=== PATIENT | female | born 1930 | race Caucasian/White ===

== ENCOUNTER 2017-06-30 12:37 | Inpatient (IN) ==
[2017-06-30] MEDS ORDERED: ACETAMINOPHEN 325 MG TABLET PO ONE (13:11)
--- NOTE | 2017-06-30 13:11 | Emergency Department Report ---
Fever HPI - General Chief Complaint: Fever Stated Complaint: tremors Time Seen by Provider: 06/30/17 13:09 Source: patient Mode of arrival: ambulatory Limitations: no limitations - History of Present Illness HPI Narrative: 87-year-old female sent to ED from home due to shaking. Patient says she walked into the room to see her and she was shaking all over and called EMS. She admits to . of tremors. On arrival patient had 102.6 fever. Patient states she has not felt good for approximately a week. She was diagnosed with a UTI five days ago and started on Bactrim. Admits bilateral lower back pain. Admits urinary urgency and frequency. Patient denies SOB, CP, cough, nausea, vomiting, abdominal pain, dysuria. MD complaint: fever - Related Data Home Medications Medication Instructions Recorded Confirmed ALPRAZolam [Alprazolam] 2 mg PO BID PRN 06/30/17 06/30/17 Albuterol HFA Inhaler [Ventolin 2 puff INH BID 06/30/17 06/30/17 Hfa 90 mcg/actuation] Carisoprodol [Soma] 350 mg PO BID 06/30/17 06/30/17 Fluticasone Propionate 1 spray EA NOSTRIL DAILY 06/30/17 06/30/17 Furosemide [Lasix 40 mg Tab] 60 mg PO BID 06/30/17 06/30/17 Gabapentin [Neurontin] 100 mg PO TID 06/30/17 06/30/17 Levothyroxine Sodium 50 mcg PO ACB 06/30/17 06/30/17 Omeprazole [Prilosec] 20 mg PO DAILY 06/30/17 06/30/17 Potassium Chloride 40 meq PO DAILY 06/30/17 06/30/17 Potassium Chloride [K-DUR 20 mEq 1 tab PO HS 06/30/17 06/30/17 Tablet] Ranitidine [Zantac] 150 mg PO HS 06/30/17 06/30/17 Simvastatin 20 mg PO HS 06/30/17 06/30/17 Sotalol [Betapace] 80 mg PO BID 06/30/17 06/30/17 Venlafaxine HCl [Venlafaxine HCl 75 mg PO DAILY 06/30/17 06/30/17 ER] Warfarin Sodium 2.5 mg PO MOWEFR 06/30/17 06/30/17 Warfarin Sodium 5 mg PO SUTUTHSA 06/30/17 06/30/17 dilTIAZem HCl [Dilt-Xr] 120 mg PO HS 06/30/17 06/30/17 Previous Rx's Medication Instructions Recorded Amox/Clav [Augmentin 875/125] 875 mg PO BID #8 tab 07/05/17 Arformoterol Neb [Brovana Neb] 15 mcg AEROSOL RTBID vial 07/05/17 Budesonide Inhalation [Pulmicort 0.25 mg AEROSOL RTBID #60 vial 07/05/17 Inhalation] Allergies Allergy/AdvReac Type Severity Reaction Status Date / Time No Known Drug Allergies Allergy Unknown Verified 06/30/17 17:15 Review of Systems All systems: reviewed and negative except as stated Constitutional: Reports: as per HPI, fever Genitourinary: Reports: as per HPI, other (known UTI) Musculoskeletal: Reports: as per HPI, back pain [facility] Medical History (Last Reviewed 08/14/16 @ 13:06 by ALEYDA Rubin) Chronic back pain (Chronic Medical) Depression (Chronic Medical) Pulmonary hypertension (Chronic Medical) Thoracic back pain (Chronic Medical) Tricuspid insufficiency (Chronic Medical) Estrogen deficiency (Chronic Medical) Palpitations (Chronic Medical) PAF (paroxysmal atrial fibrillation) (Chronic Medical) GERD (gastroesophageal reflux disease) (Chronic Medical) Asthma (Chronic Medical) COPD (chronic obstructive pulmonary disease) (Chronic Medical) Hyperlipemia (Chronic Medical) Surgical History: Tonsillectomy 1939. FLAVIO/BSO with appendectomy 1973. Cataracts bilateral 2005. Lens implants bilateral 2007. Right total hip replacement 07/14/2010 Family History: Family History (Last Reviewed 08/14/16 @ 13:06 by ALEYDA Rubin) Father , Age 66 CAD Coronary artery disease Mother , Age 64 Cerebral hemorrhage Atrial fibrillation Cerebral hemorrhage Brother , Age 64 Cardiomyopathy, history of heart recipient Heart recipient Cardiomyopathy Sister , Age 74 Cirrhosis of liver Cirrhosis Sister , Age 85 Alzheimer's Alzheimer's dementia Sister Cancer of colon - Social History Smoking status: Former smoker Alcohol intake frequency: does not drink Household members: spouse Physical Exam - Limitations Limitations: no limitations - General General appearance: alert - Normal Exams: Head:: Normocephalic without trauma Eyes:: No scleral icterus, irritation ENMT:: No facial trauma, nasal exudates Chest/Respirations:: Clear all de dios, with good airflow, and symmetry bilaterally Cardiovascular:: Regular rate and rhythm Abdomen:: Bowel sounds positive, soft, non-tender, non-distended Musculoskeletal:: good range of motion, all extremities Neurological:: Patient is alert, and oriented, motor/sensory/cerebellar, exams w /o gross deficits, to observation Psychiatric:: Patient exhibits, appropriate attention, emotion and affect - Eye Eye exam: Present: EOMI - ENT ENT exam: Present: mucous membranes moist (back alcohol probably needs a linear 3 5) - Neck Neck exam: Present: full ROM, trachea midline. Absent: tenderness Course - Consultations Consultation #1: I discussed patient's HPI, PMH, labs, CXR, VS, exam findings and treatment in ER with Dr. Pablo. Dr. Pablo will admit OBS. Vital Signs Temperature 102.4 F H 06/30/17 12:46 Pulse Rate 69 06/30/17 12:46 Respiratory Rate 20 06/30/17 12:46 Blood Pressure 141/63 H 06/30/17 12:46 Pulse Oximetry 92 06/30/17 12:46 Temperature 102.4 F H 06/30/17 12:46 Pulse Rate 69 06/30/17 12:46 Respiratory Rate 20 06/30/17 12:46 Blood Pressure 141/63 H 06/30/17 12:46 Pulse Oximetry 92 06/30/17 12:46 Fever - MDM Narrative Medical decision making narrative: WBC 10.9 NA 147 Lactate 2.3 (patient given 1 gm of rocephin) INR 4.3 (anticoagulated due to atrial fibrillation) UA 3+ LE, 30-50 WBC, 3+ bacteria CXR show no acute findings Patient arrived with HR of 69 bpm, HR went up to low 100s how ever patient had converted to A-fib at that time I discussed conversation with patient I had with Dr. Pablo (failed outpatient treatment, elevated lactate), observation admission which patient verbalized understanding and was in agreement. - Differential Diagnosis Likely: community acquired pneumonia, pyelonephritis, viral infection, sepsis - Medical Records Attestation: I reviewed the patient's medical records. - Lab Data Attestation: I reviewed the patient's lab results. Result diagrams: 07/05/17 04:40 07/05/17 04:40 - Radiology Data Attestation: I reviewed the patient's radiology results. CXR: no acute cardiopulmonary findings Disposition Clinical Impression: UTI (urinary tract infection) Qualifiers: Urinary tract infection type: site unspecified Hematuria presence: with hematuria Qualified Code(s): N39.0 - Urinary tract infection, site not specified ; R31.9 - Hematuria, unspecified Disposition: 02 To OBS [facility] [place]: Stable - Seen By: midlevel
[2017-06-30] MEDS: SALINE FLUSH 10ml SYRINGE IVF PRN ×2 (13:50→14:47)
[2017-06-30] MEDS ORDERED: CEFTRIAXONE (ER USE ONLY) 1 GM in NS 100 ML IV ONE (14:43)
--- NOTE | 2017-06-30 16:34 | History & Physical Report ---
History of Present Illness Date: 06/30/17 Chief complaint: Fever, chills, UTI failed outpatinet tx, sepsis HPI: 87 yr old female who is brought to the room today for acute evaluation. Her inital complaint was shaking, However, upon arrival she was found to have a fever of 102.4. Patient was treated by her primary care provider on 06/25/17 at [facility]. At that time she was found to have a urinary tract infection and was placed on Bactrim. Since that time she has continued to get worse. She reports initially had some mild right flank pain, however, is now having bilateral flank pain. Given her worsening symptoms, she presented to the ER today for acute evaluation. She was found to have fever up to 103.2, count was normal at 10.4, however, she did have 79% neutrophils. Initial lactate was found to be elevated at 2.3. Chemistry panel did reveal elevation of sodium at 147. Urinalysis does reveal acute infection with positive LE, positive RBCs, positive WBCs. She was given 1 liter IV fluid bolus as well as 1 gram of IV Rocephin. Given the severity of her illness, accompanied by failed outpatient treatment. The hospitalist services were contacted and accepted patient for inpatient admission for further evaluation and treatment. Patient describes dysuria with increased urinary frequency and increased urinary incontinence for the past 5 days. She does report having bilateral flank pain. She complains of generalized fatigue and weakness. She is chronically anticoagulated on warfarin due to chronic atrial fibrillation. Her INR today is 4.3. She does report having 1 episode of blood in the toilet last week on 06/25 while at the clinic. Unsure if blood was due to urinary tract infection or in her stool. His other history of a bleeding. Reports ongoing "swelling" peripheral edema and abdominal distention that has been present for months. He does have a known history of congestive heart failure and is on Lasix 60 milligrams twice a day. We did discuss advance directives. She does wish to be do not resuscitate Review of Systems All systems PM: 10-point ROS was reviewed, no additional remarkable complaints except - Constitutional Constitutional: Present: chills, fatigue, fever(s), lethargy - Genitourinary Genitourinary: Present: dysuria, flank pain (bilaterally), urinary frequency, urinary incontinence Past Medical History Medical History: Medical History (Last Updated 06/30/17 @ 17:06 by Nicole Hidalgo APRN) CHF (congestive heart failure) (Acute) Chronic back pain (Chronic) Depression (Chronic) Pulmonary hypertension (Chronic) Thoracic back pain (Chronic) Tricuspid insufficiency (Chronic) Estrogen deficiency (Chronic) Palpitations (Chronic) PAF (paroxysmal atrial fibrillation) (Chronic) GERD (gastroesophageal reflux disease) (Chronic) Asthma (Chronic) COPD (chronic obstructive pulmonary disease) (Chronic) Hyperlipemia (Chronic) Surgical History: Tonsillectomy 1938. FLAVIO/BSO with appendectomy 1973. Cataracts bilateral 2005. Lens implants bilateral 2007. Right total hip replacement 07/14/2010. Pacemaker Family History: Father , Age 66 CAD Coronary artery disease Mother , Age 64 Cerebral hemorrhage Atrial fibrillation Cerebral hemorrhage Brother , Age 64 Cardiomyopathy, history of heart recipient Heart recipient Cardiomyopathy Sister , Age 74 Cirrhosis of liver Cirrhosis Sister , Age 85 Alzheimer's Alzheimer's dementia Sister Cancer of colon Family History: As Above - Social History Smoking status: Former smoker Substance use type: does not use Alcohol intake frequency: does not drink Housing: house Household members: spouse Current occupational status: retired Social history: Resides independently at home with . Patient is active Primary care provider, Manjula Mcdonald at [facility] [employer]-[facility]. [place] Medications Home Medications Medication Instructions Recorded Confirmed Type ALPRAZolam [Alprazolam] 2 mg PO BID PRN 06/30/17 06/30/17 History Albuterol HFA Inhaler [Ventolin 2 puff INH BID 06/30/17 06/30/17 History Hfa 90 mcg/actuation] Amiodarone [Pacerone] 100 mg PO HS 06/30/17 06/30/17 History Carisoprodol [Soma] 350 mg PO BID 06/30/17 06/30/17 History Fluticasone Propionate 1 spray EA NOSTRIL DAILY 06/30/17 06/30/17 History Furosemide [Lasix 40 mg Tab] 60 mg PO BID 06/30/17 06/30/17 History Gabapentin [Neurontin] 100 mg PO TID 06/30/17 06/30/17 History Levothyroxine Sodium 50 mcg PO ACB 06/30/17 06/30/17 History Omeprazole [Prilosec] 20 mg PO DAILY 06/30/17 06/30/17 History Potassium Chloride 40 meq PO DAILY 06/30/17 06/30/17 History Potassium Chloride [K-DUR 20 mEq 1 tab PO HS 06/30/17 06/30/17 History Tablet] Ranitidine [Zantac] 150 mg PO HS 06/30/17 06/30/17 History Simvastatin [Simvastatin] 20 mg PO HS 06/30/17 06/30/17 History Sotalol [Betapace] 80 mg PO BID 06/30/17 06/30/17 History Venlafaxine HCl [Venlafaxine HCl 75 mg PO DAILY 06/30/17 06/30/17 History ER] Warfarin Sodium [Warfarin Sodium] 2.5 mg PO MOWEFR 06/30/17 06/30/17 History Warfarin Sodium [Warfarin Sodium] 5 mg PO SUTUTHSA 06/30/17 06/30/17 History dilTIAZem HCl [Dilt-Xr] 120 mg PO HS 06/30/17 06/30/17 History Allergies Allergy/AdvReac Type Severity Reaction Status Date / Time No Known Drug Allergies Allergy Unknown Verified 06/30/17 17:15 Exam Vital Signs: Temperature 99.8 F 06/30/17 16:10 Pulse Rate 107 H 06/30/17 16:06 Respiratory Rate 19 06/30/17 16:06 Blood Pressure 98/51 06/30/17 16:06 Pulse Oximetry 92 06/30/17 12:46 Telemetry Rhythm: A-fib - Constitutional Present: mild distress, well nourished, well developed - Routine HEENT Exam Eye: Present: EOMI ENT: Present: mucous membranes moist, dentition normal - Routine Respiratory Exam Present: CTA bilaterally. Absent: wheezes - Routine Cardiovascular Exam Present: S1, S2, irregular rhythm. Absent: murmur - Routine Abdominal Exam Present: soft, non distended, distended (chronic), firm. Absent: normoactive bowel sounds (hypoactive), tenderness - Routine Extremities Exam Present: edema (L>R trace edema BLE), normal capillary refill - Routine Skin Exam Present: intact, dry, warm - Routine Neurological Exam Present: alert, oriented X3, CN II-XII intact - Routine Psychiatric Exam Present: normal affect, normal thought process, cooperative Results - Labs CBC & Chem 7: 06/30/17 12:51 06/30/17 13:49 Assessment and Plan (1) Severe sepsis Current visit: Yes Status: Acute Assessment and Plan: Impression Severe sepsis- Venous lactate greater than 2.1. Fever of 103.3, tachycardia-107 Urinary tract infection Flank pain and bilateral Failed outpatient treatment Hypernatremia -present on admission elevated INR- 4.3 on admission Chronic Atrial fibrillation Hyperlipidemia Congestive heart failure- Right sided Asthma/COPD GERD Depression Chronic back pain Plan Admit patient as inpatient status -she does meet criteria, given severe sepsis with failed outpatient treatment. She was started on IV Rocephin while in the emergency room. Blood cultures and urine culture are pending. Initial lactate is elevated at 2.3. We will repeat this as per sepsis protocol. qSOFA score- time of admission score is 1 out of 3 revealing low risk of sepsis mortality. Need to monitor carefully Continue with IV Rocephin 1 gram daily as this is accepted monotherapy. Obtain Ct renal to for pyelonephritis versus renal calculi Patient did receive 1 liter of normal saline while in the emergency room. We will continue saline at 100 mL per hour. Suspect the patient is intravascularly dehydrated. However, extra vascularly edematous state, i.e., lower extremity edema She does routinely take Lasix 60 mg twice a day. Will initially place this on hold. However, will have to monitor patient carefully for fluid overload, pulmonary edema, etc. Kailash Hose to bilateral lower extremities to help with peripheral edema Will resume all other home mediations other that lasix and potassium Consult pharmacy for Coumadin dosing- INR today is 4.3 Does wish to be a do not resuscitate and this order is written Will discuss further orders and plan of care with attending, Dr. Pablo At time of discharge medical care will return to primary care provider, Stella Schwab- FANNY at [facility] DVT Prophylaxis: Coumadin Resuscitation Status: Do Not Resuscitate - Time spent with patient Time with patient PN: 50 minutes - Physician Narrative Physician: Angie Pablo MD Narrative: Date: 06/30/17 Time: 1734 I have independently evaluated and examined this patient. I reviewed the chart, the patient's history, and the M[employer] OPERATOR/PA's documented findings as above. We discussed and formulated the assessment and plan as above with additions as below: Mrs. Ludwig was seen with her daughter at bedside. The patient reports recent dysuria/hematuria in conjunction with right-sided back pain. Urinary symptoms have improved but back pain has increased and is now bilateral. Today she developed shaking which was worse than she is had "ever experienced in her life " prompting evaluation in the emergency room. Daughter reports that the patient' s son described patient talking gibberish earlier today which the patient attributes to her shaking so badly. There she was found to be febrile with an initial temperature of 102.4 increasing to 103.2 with persistent pyuria. Examination notable for patient alert and asking appropriate questions, NAD at present Respirations nonlabored, good airflow, breath sounds clear-inspiration triggers cough Abdomen benign, no suprapubic tenderness on examination Right costovertebral angle tenderness present Initial lactic acid 2.3 dropping to 1.1 following fluids in the ER; hemodynamically stable although mild residual tachycardia with heart rates 96- 102 persist Chest x-ray unremarkable by my review; renal CT also reviewed by myself demonstrating reticulosis without diverticulitis, large cyst in the left lobe of the liver, perinephric stranding primarily around the right kidney, questionable right hydronephrosis-minor. UTI/right pyelonephritis/severe sepsis-admit as inpatient, ceftriaxone daily pending results of blood cultures/urine cultures. Warfarin on hold pending stabilization of INR. Continue alprazolam at home dose to avoid withdrawal. Discussed with the ED provider, outpatient records reviewed. Sepsis Assessment - Evaluation SIRS Criteria: temperature > 100.9, pulse > 90 beats/minute, RR > 20 Severe Sepsis: lactate > 2.0 mg/dL Hospital Course Summary Disclaimer: The visit summary below is not to be considered part of the above Progress Note. Hospital Course: Impression Severe sepsis- Venous lactate greater than 2.1. Fever of 103.3, tachycardia-107 Urinary tract infection Flank pain and bilateral Failed outpatient treatment Hypernatremia -present on admission elevated INR- 4.3 on admission Chronic Atrial fibrillation Hyperlipidemia Congestive heart failure- Right sided Asthma/COPD GERD Depression Chronic back pain Plan Admit patient as inpatient status -she does meet criteria, given severe sepsis with failed outpatient treatment. She was started on IV Rocephin while in the emergency room. Blood cultures and urine culture are pending. Initial lactate is elevated at 2.3. We will repeat this as per sepsis protocol. qSOFA score- time of admission score is 1 out of 3 revealing low risk of sepsis mortality. Need to monitor carefully Continue with IV Rocephin 1 gram daily as this is excepted monotherapy. Obtain Ct renal to for pyelonephritis versus renal calculi Patient did receive 1 liter of normal saline while in the emergency room. We will continue saline at 100 mL per hour. Suspect the patient is intravascularly dehydrated. However, extra vascularly edematous state, i.e., lower extremity edema She does routinely take Lasix 60 mg twice a day. Will initially place this on hold. However, will have to monitor patient carefully for fluid overload, pulmonary edema, etc. Kailash Hose to bilateral lower extremities to help with peripheral edema Will resume all other home mediations other that lasix and potassium Consult pharmacy for Coumadin dosing- INR today is 4.3 Does wish to be a do not resuscitate and this order is written Will discuss further orders and plan of care with attending, Dr. Pablo At time of discharge medical care will return to primary care provider, Stella Naranjo APRN at [facility]
[2017-06-30] MEDS ORDERED: WARFARIN - PHARMACY CONSULT MC ONE (16:56)
[2017-06-30] MEDS: NS 1,000 ML IV SCH (18:40)
[2017-06-30] MEDS ORDERED: METOCLOPRAMIDE 10mg/2ml INJECTION IVP PRN (19:33)
[2017-06-30] MEDS: AMIODARONE 200 MG TABLET PO SCH (21:32)
[2017-06-30] MEDS: GABAPENTIN 100 MG CAPSULE PO SCH (21:33)
[2017-06-30] MEDS: SIMVASTATIN 20 MG TABLET PO SCH (21:33)
[2017-06-30] MEDS: RANITIDINE 150 MG TABLET PO SCH (21:33)
[2017-06-30] MEDS: SOTALOL 80 MG TABLET PO SCH ×2 (21:33→22:17)
[2017-06-30] MEDS ORDERED: ALPRAZolam 0.5 MG TABLET PO PRN (22:19)
[2017-07-01] MEDS: LEVOTHYROXINE 50 MCG TABLET PO SCH (06:19)
[2017-07-01] MEDS: NS 1,000 ML IV SCH ×3 (06:31→19:14)
[2017-07-01] MEDS ORDERED: CEFTRIAXONE 1,000 MG in D5W 25 ML IV SCH (09:00)
--- NOTE | 2017-07-01 09:12 | Pharmacy Consult ---
Pharmacy Consult-Warfarin - Laboratory Information 07/01/17 07/01/17 04:01 04:01 Hgb 13.6 Hct 42.6 INR 4.14 H - Consult Information 87 y.o. Female with history of a. fib and chronic anticoagulation with Warfarin. Home dose of warfarin: 2.5 mg po - and 5 mg po -. goal INR range= 2.0 to 3.0 date INR dose 07/01 4.14 plan: no warfarin dose INR is supra-therapeutic today. Nursing reports no signs of active bleeding. Will give no Warfarin dose today. Potential drug-drug interaction exists between Ceftriaxone and Warfarin also Amiodarone and Warfarin. Both interactions have the potential to increase INR and risk of bleeding. Pharmacy will monitor and dose. Thank you, Lauren Thornton [facility]
[2017-07-01] MEDS: SOTALOL 80 MG TABLET PO SCH ×2 (09:21→21:21)
[2017-07-01] MEDS: GABAPENTIN 100 MG CAPSULE PO SCH ×3 (09:21→21:21)
[2017-07-01] MEDS: Venlaflaxine XR 75 MG CAPSULE (24hr) PO SCH (09:21)
[2017-07-01] MEDS: FLUTICASONE NASAL SPRAY 50mcg EA NOSTRIL SCH (09:22)
[2017-07-01] MEDS: OMEPRAZOLE 20 MG CAPSULE PO SCH (09:29)
--- NOTE | 2017-07-01 09:41 | CT Scan Report ---
Indication: Bilateral flank pain with UTI, sepsis PROCEDURE: CT renal wo con (stone magaly): Encounter: Initial Comparison: None Technique: Axial CT images were performed through the abdomen and pelvis without intravenous contrast. Coronal and sagittal two-dimensional reformats. Automated Exposure Control and Iterative Reconstruction dose reducing techniques were utilized. Findings: Fibrosis and scarring in the lower lobes with a right lower lobe calcified granuloma. Multiple liver cysts. The gallbladder is unremarkable. Granulomas in the spleen. The pancreas and adrenal glands are normal. Left kidney is normal. Right kidney shows mild hydronephrosis and hydroureter due to a possible distal ureteral stone which may be obscured by the metallic artifact from the right hip prosthesis. Sigmoid diverticulosis without evidence of acute diverticulitis. Bone windows are unremarkable. Impression: Right hydronephrosis and hydroureter with inflammation could be due to a right distal ureteral stone that is obscured by metallic artifact from the hip replacement, a recently passed stone or potentially pyelonephritis. Urologic evaluation may be helpful. There is a preliminary report by [facility]. .
[2017-07-01] MEDS: ALBUTEROL 2.5mg/3ml (0.083%) NEB AEROSOL SCH ×2 (09:50→19:48)
--- NOTE | 2017-07-01 09:51 | XRay Report ---
INDICATION: fever PROCEDURE: CHEST 2-VIEWS UPRIGHT (PA & LAT) Encounter: Initial COMPARISON: April 12, 2017 FINDINGS: No focal pneumonia, pleural effusion or pneumothorax. Mild fibrotic changes and senescent change. Heart size and mediastinal contours are stable. Left pacemaker. Impression: No acute cardiopulmonary disease. .
--- NOTE | 2017-07-01 10:27 | Progress Note ---
- Date 07/01/17 Subjective: F/U: severe, sepsis, UTI, failed outpatient therapy. Fatou is seen this morning while resting in bed. She reports that she is feeling a little better. She denies any fevers, chills, chest pain, shortness of breath , abdominal pain, nausea, vomiting or dysuria. Her appetite is fair and urinary output is stable. Urine culture revealed E. coli with sensitives pending. Lactate trending down (initial 2.3, decreased to 1.1). CT revealed right hydronephrosis and hydroureter with inflammation which could be due to a right distal ureteral stone that is obscured by metallic artifact from right hip , a recently passed stone or potentially pyelonephritis. Labs revealed new leukocytosis (WBC 12.1) and INR remains elevated at 4.14 without signs of bleeding. Hypernatremia resolved and new hyperglycemia (Glu 121). Objective Vital signs: Temperature 96.4 F L 07/01/17 07:00 Pulse Rate 109 H 07/01/17 09:21 Respiratory Rate 16 07/01/17 09:50 Blood Pressure 124/57 07/01/17 07:00 Pulse Oximetry 93 07/01/17 09:50 Rhythm: Sinus Tachycardia Height/Weight/BMI: Height 5 ft 1 in Weight 178 lb 9.191 oz Body Mass Index 32.7 Comments: Resting in bed, eating breakfast - Constitutional Present: no acute distress, well nourished, well developed, cooperative - Routine HEENT Exam Head: Present: normocephalic, atraumatic Eye: Present: PERRL. Absent: conjunctival icterus ENT: Present: mucous membranes moist, oropharynx clear - Routine Respiratory Exam Present: decreased breath sounds, crackles. Absent: respiratory distress, wheezes Comments: Patient on 1L at time of exam. Denies use of home oxygen. No cough or conversational dyspnea. - Routine Cardiovascular Exam Present: tachycardia - Routine Abdominal Exam Present: soft, normoactive bowel sounds, non distended - Routine Extremities Exam Present: edema (trace), full ROM, pulses intact - Routine Back/Spine/Pelvis Exam Back/Spine: Present: full ROM. Absent: vertebral tenderness - Routine Musculoskeletal Exam Musculoskeletal: Present: no clubbing or cyanosis, moving extremities well - Routine Skin Exam Present: intact, dry, warm Comments: Afebrile. - Routine Neurological Exam Present: alert, moving all extremities, hearing grossly intact, normal speech - Routine Lymphatic Exam Lymphatic: Absent: lymphedema - Routine Psychiatric Exam Present: cooperative Results - Labs CBC & Chem 7: 07/01/17 04:01 07/01/17 04:01 Assessment and Plan (1) Severe sepsis Current visit: Yes Status: Acute Assessment and Plan: Impression Severe sepsis- Venous lactate greater than 2.1. Fever of 103.3, tachycardia-107 Urinary tract infection Flank pain, bilateral Failed outpatient treatment Hypernatremia -present on admission elevated INR- 4.3 on admission Paroxysmal Atrial fibrillation Hyperlipidemia Congestive heart failure- Right sided Asthma/COPD GERD Depression Chronic back pain Leukocytosis - NEW DIAGNOSIS. 07/01 Patient reports she is feeling better. New leukocytosis today (WBC 12.1) as well as new hyperglycemia (Glu 121). Lactate trending down (2.3-->1.1). qSOFA score- time of admission score is 1 out of 3 revealing low risk of sepsis mortality. Need to monitor carefully Continue Rocephin for UTI. UA culture revealed E. Coli with sensitivities pending. Blood cultures pending. INR remains elevated (4.14). Pharmacy monitoring. CT revealed right hydronephrosis and hydroureter with inflammation which could be due to a right distal ureteral stone that is obscured by metallic artifact from right hip, a recently passed stone or potentially pyelonephritis. Will strain urine and monitor urinary output closely. History of a-fib. Continue to monitor closely on telemetry. HR variable (60's then tachycardiac ~110). Weight trending up. She does routinely take Lasix 60 mg twice a day. Will initially place this on hold. However, will have to monitor patient carefully for fluid overload, pulmonary edema, etc. Patient continues to require supplemental oxygen. Crackles bibasilar. Denies home oxygen use. Encourage incentive spirometry. Monitor for signs of fluid overload. Will decrease IV fluids to 75cc/hr and encourage oral intake. Philip Hose to bilateral lower extremities to help with peripheral edema Recheck labs in AM to monitor blood counts, electrolytes and renal function. DVT Prophylaxis: SCD's, PHILIP Hose GI Prophylaxis: Omeprazole, Rantidine Resuscitation Status: Do Not Resuscitate - Time spent with patient Time with patient PN: 30 minutes - Physician Narrative Physician: Angie Pablo MD Narrative: Date: 07/01/17 Time: 1430 I have independently evaluated and examined this patient. I reviewed the chart, the patient's history, and the STORE SPECIALIST/PA's documented findings as above. We discussed and formulated the assessment and plan as above with additions as below: Mrs. Ludwig reports her back pain is better and comparable to what she considers her usual chronic back pain. She's had no recurrent chilling and denies lightheadedness, dysuria, or nausea. The patient is alert and cooperative; there is persistent right costovertebral angle tenderness on exam. Afebrile today. Respirations nonlabored, irregular cardiac rhythm, abdomen benign Final CT report reviewed-question of nephrolithiasis noted and reviewed with patient who denies any history of nephrolithiasis or abrupt onset right sided pain. Telemetry reviewed-patient has been in and out of atrial fibrillation with low- grade tachycardia with intermittent sinus rhythm with normal rate. Daughter reports she believes this is common as she has noted patient in atrial fibrillation in the past despite current medications. Check KUB for calcification suspicious for distal ureteral stone; history not suggestive of nephrolithiasis but if partially obstructed with infection will require urology assessment in near future. Clinically significantly improved with antibiotics. Repeat UA in a.m. Paroxysmal atrial fibrillation persists on low-dose amiodarone and sotalol- regimen and rhythm discussed with Lucero POPE for Dr. Ford--she recommended pacemaker interrogation and assessment of QTC. Readdress medications after we have better idea if this is isolated breakthrough with infection or chronic. Hospital Course Summary Disclaimer: The visit summary below is not to be considered part of the above Progress Note. Hospital Course: Impression Severe sepsis- Venous lactate greater than 2.1. Fever of 103.3, tachycardia-107 Urinary tract infection Flank pain and bilateral Failed outpatient treatment Hypernatremia -present on admission elevated INR- 4.3 on admission Chronic Atrial fibrillation Hyperlipidemia Congestive heart failure- Right sided Asthma/COPD GERD Depression Chronic back pain Plan Admit patient as inpatient status -she does meet criteria, given severe sepsis with failed outpatient treatment. She was started on IV Rocephin while in the emergency room. Blood cultures and urine culture are pending. Initial lactate is elevated at 2.3. We will repeat this as per sepsis protocol. qSOFA score- time of admission score is 1 out of 3 revealing low risk of sepsis mortality. Need to monitor carefully Continue with IV Rocephin 1 gram daily as this is excepted monotherapy. Obtain Ct renal to for pyelonephritis versus renal calculi Patient did receive 1 liter of normal saline while in the emergency room. We will continue saline at 100 mL per hour. Suspect the patient is intravascularly dehydrated. However, extra vascularly edematous state, i.e., lower extremity edema She does routinely take Lasix 60 mg twice a day. Will initially place this on hold. However, will have to monitor patient carefully for fluid overload, pulmonary edema, etc. Philip Hose to bilateral lower extremities to help with peripheral edema Will resume all other home mediations other that lasix and potassium Consult pharmacy for Coumadin dosing- INR today is 4.3 Does wish to be a do not resuscitate and this order is written Will discuss further orders and plan of care with attending, Dr. Pablo At time of discharge medical care will return to primary care provider, Stella Naranjo APRN at [facility] 07/01 Patient reports she is feeling better. New leukocytosis today (WBC 12.1) as well as new hyperglycemia (Glu 121). Lactate trending down (2.3-->1.1). Continue Rocephin for UTI. UA culture revealed E. Coli with sensitivities pending. Blood cultures pending. INR remains elevated (4.14). Pharmacy monitoring. CT revealed right hydronephrosis and hydroureter with inflammation which could be due to a right distal ureteral stone that is obscured by metallic artifact from right hip, a recently passed stone or potentially pyelonephritis. Check KUB today. Will strain urine and monitor urinary output closely. History of a-fib. Continue to monitor closely on telemetry. HR variable (60's then tachycardiac ~110). Pacemaker to be interrogated to determine chronicity of paroxysmal atrial fibrillation. Check QTC on sotalol. Weight trending up. She does routinely take Lasix 60 mg twice a day. Will initially place this on hold. However, will have to monitor patient carefully for fluid overload, pulmonary edema, etc. Patient continues to require supplemental oxygen. Crackles bibasilar. Denies home oxygen use. Encourage incentive spirometry. Monitor for signs of fluid overload. Will decrease IV fluids to 75cc/hr and encourage oral intake.
[2017-07-01] MEDS: CEFTRIAXONE 1 G in NS 100 ML IV SCH (13:38)
[2017-07-01] MEDS: AMIODARONE 200 MG TABLET PO SCH (21:19)
[2017-07-01] MEDS: ALPRAZolam 1 MG TABLET PO PRN (21:20)
[2017-07-01] MEDS: RANITIDINE 150 MG TABLET PO SCH (21:20)
[2017-07-01] MEDS: SIMVASTATIN 20 MG TABLET PO SCH (21:21)
[2017-07-02] MEDS: LEVOTHYROXINE 50 MCG TABLET PO SCH (06:05)
[2017-07-02] MEDS: FLUTICASONE NASAL SPRAY 50mcg EA NOSTRIL SCH (08:53)
[2017-07-02] MEDS: GABAPENTIN 100 MG CAPSULE PO SCH ×3 (08:53→21:39)
[2017-07-02] MEDS: Venlaflaxine XR 75 MG CAPSULE (24hr) PO SCH (08:54)
[2017-07-02] MEDS: OMEPRAZOLE 20 MG CAPSULE PO SCH (08:54)
[2017-07-02] MEDS: NS 1,000 ML IV SCH (08:54)
[2017-07-02] MEDS: SOTALOL 80 MG TABLET PO SCH ×2 (08:54→21:40)
--- NOTE | 2017-07-02 09:44 | Progress Note ---
- Date 07/02/17 Subjective: Fatou is having R CVA pain that wraps around her side into her RUQ. She states that her pain is exacerbated by her cough, which is nonproductive and has been present for months. Movement doesn't intensify the pain. She also notes increased bloating today without nausea/vomiting. She had bowel movements for the last 2 days but not yet today. She has been eating/drinking well. She reports that she has chronic swelling in her legs, especially her left. No chest pain or SOA - but added that she sometimes gets SOA at home. She feels rested this am. She denies weakness or dizziness with ambulation. Objective Vital signs: Temperature 96.8 F 07/02/17 07:51 Pulse Rate 99 07/02/17 08:54 Respiratory Rate 16 07/02/17 07:51 Blood Pressure 116/73 07/02/17 07:51 Pulse Oximetry 91 07/02/17 07:51 Height/Weight/BMI: Height 1.55 m Weight 81 kg Body Mass Index 32.7 - Constitutional Present: no acute distress, well nourished, well developed - Routine HEENT Exam Head: Present: normocephalic Eye: Present: PERRL. Absent: conjunctival icterus, scleral injection ENT: Present: mucous membranes moist, oropharynx clear - Routine Respiratory Exam Present: CTA bilaterally - Routine Cardiovascular Exam Present: S1, S2, irregular rhythm - Routine Abdominal Exam Present: soft, normoactive bowel sounds, non tender, distended - Routine Extremities Exam Present: edema (1+, L>R), pulses intact, normal capillary refill - Routine Back/Spine/Pelvis Exam Back/Spine: Present: CVA tenderness (Right CVA tenderness) - Routine Musculoskeletal Exam Musculoskeletal: Present: moving extremities well - Routine Skin Exam Present: intact, dry, warm - Routine Neurological Exam Present: alert, oriented X3, CN II-XII intact, moving all extremities, vision grossly intact, hearing grossly intact, normal speech. Absent: sensory deficit , motor deficit, altered mental status, facial asymmetry - Routine Psychiatric Exam Present: normal affect, normal thought process, cooperative Results - Labs CBC & Chem 7: 07/02/17 04:06 07/02/17 04:06 Assessment and Plan (1) Severe sepsis Current visit: Yes Status: Acute Assessment and Plan: Impression Severe sepsis- Venous lactate greater than 2.1. Fever of 103.3, tachycardia-107 Urinary tract infection - E. coli Hypokalemia, not POA Flank pain, bilateral Failed outpatient treatment Hypernatremia - present on admission - resolved elevated INR - 4.3 on admission Paroxysmal Atrial fibrillation Hyperlipidemia Congestive heart failure- Right sided Asthma/COPD GERD Depression Chronic back pain Leukocytosis 07/02 WBC improved to 10.8, afebrile. UC pos for E. coli sensitive to Rocephin (today is Day #3) K decreased to 3.3 - orally replaced. DC IVF - adequate PO intake. Na 144. INR 3.28 - Coumadin per pharmacy. High risk d/t persistently supratherapeutic inr. Tele reviewed - she was in a-fib on first glance and when I later reviewed there were p-waves. Hx PAF - pacemaker interrogation ordered yesterday. Maintaining sats on room air today. D/W Dr. Pablo - considering repeat CT vs. urologic consult. DVT Prophylaxis: Coumadin GI Prophylaxis: Omeprazole Resuscitation Status: Do Not Resuscitate - Physician Narrative Physician: Angie Pablo MD Narrative: Date: 07/02/17 Time: 1410 I have independently evaluated and examined this patient. I reviewed the chart, the patient's history, and the NUCLEAR WASTE MANAGEMENT ENGINEER/PA's documented findings as above. We discussed and formulated the assessment and plan as above with additions as below: Mrs. Ludwig was seen earlier this afternoon reporting that back pain is better than when she came in and basically at baseline. She has occasional cough but denies any ongoing urinary symptoms. Patient is in no acute distress, abdomen is soft and nontender but there is persistent right costovertebral angle tenderness. Urine culture +Escherichia coli resistant to Bactrim and ampicillin Blood cultures negative after 2 days Leukocytosis resolving Repeat renal CT today with and without contrast to better define ureter and lower pole of the right kidney which looked slightly irregular on noncontrast study. Potassium replaced earlier. Pacemaker interrogation reviewed with the patient and her -patient is in and out of atrial fibrillation routinely with over 8000 episodes of atrial fibrillation/atrial tachycardia reported since last interrogation. Will discuss further with cardiology. QTc interval 430 ms on EKG. Telemetry here continues to reveal alternating atrial fibrillation with rates generally controlled or minimally elevated, paced rhythm, and occasionally sinus rhythm. INR improving-warfarin resumed at 2 mg today. Hospital Course Summary Disclaimer: The visit summary below is not to be considered part of the above Progress Note. Hospital Course: Impression Severe sepsis- Venous lactate greater than 2.1. Fever of 103.3, tachycardia-107 Urinary tract infection Flank pain and bilateral Failed outpatient treatment Hypernatremia -present on admission elevated INR- 4.3 on admission Chronic Atrial fibrillation Hyperlipidemia Congestive heart failure- Right sided Asthma/COPD GERD Depression Chronic back pain Plan Admit patient as inpatient status -she does meet criteria, given severe sepsis with failed outpatient treatment. She was started on IV Rocephin while in the emergency room. Blood cultures and urine culture are pending. Initial lactate is elevated at 2.3. We will repeat this as per sepsis protocol. qSOFA score- time of admission score is 1 out of 3 revealing low risk of sepsis mortality. Need to monitor carefully Continue with IV Rocephin 1 gram daily as this is excepted monotherapy. Obtain Ct renal to for pyelonephritis versus renal calculi Patient did receive 1 liter of normal saline while in the emergency room. We will continue saline at 100 mL per hour. Suspect the patient is intravascularly dehydrated. However, extra vascularly edematous state, i.e., lower extremity edema She does routinely take Lasix 60 mg twice a day. Will initially place this on hold. However, will have to monitor patient carefully for fluid overload, pulmonary edema, etc. Kailash Hose to bilateral lower extremities to help with peripheral edema Will resume all other home mediations other that lasix and potassium Consult pharmacy for Coumadin dosing- INR today is 4.3 Does wish to be a do not resuscitate and this order is written Will discuss further orders and plan of care with attending, Dr. Pablo At time of discharge medical care will return to primary care provider, Stella Naranjo APRN at [facility] 07/01 Patient reports she is feeling better. New leukocytosis today (WBC 12.1) as well as new hyperglycemia (Glu 121). Lactate trending down (2.3-->1.1). Continue Rocephin for UTI. UA culture revealed E. Coli with sensitivities pending. Blood cultures pending. INR remains elevated (4.14). Pharmacy monitoring. CT revealed right hydronephrosis and hydroureter with inflammation which could be due to a right distal ureteral stone that is obscured by metallic artifact from right hip, a recently passed stone or potentially pyelonephritis. Check KUB today. Will strain urine and monitor urinary output closely. History of a-fib. Continue to monitor closely on telemetry. HR variable (60's then tachycardiac ~110). Pacemaker to be interrogated to determine chronicity of paroxysmal atrial fibrillation. Check QTC on sotalol. Weight trending up. She does routinely take Lasix 60 mg twice a day. Will initially place this on hold. However, will have to monitor patient carefully for fluid overload, pulmonary edema, etc. Patient continues to require supplemental oxygen. Crackles bibasilar. Denies home oxygen use. Encourage incentive spirometry. Monitor for signs of fluid overload. Will decrease IV fluids to 75cc/hr and encourage oral intake. 07/02 WBC improved to 10.8, afebrile. UC pos for E. coli sensitive to Rocephin (today is Day #3) K decreased to 3.3 - orally replaced. DC IVF - adequate PO intake. Na 144. INR 3.28 - Coumadin per pharmacy. Tele reviewed - she was in a-fib on first glance and when I later reviewed there were p-waves. Hx PAF - pacemaker interrogation ordered yesterday. Maintaining sats on room air today. D/W Dr. Pablo - considering repeat CT vs. urologic consult.
--- NOTE | 2017-07-02 09:47 | Pharmacy Consult ---
Pharmacy Consult-Warfarin - Laboratory Information 07/01/17 07/01/17 07/02/17 04:01 04:01 04:06 Hgb 13.6 Hct 42.6 INR 4.14 H 3.28 H 07/02/17 04:06 Hgb 11.8 L D Hct 36.8 D INR - Consult Information 87 y.o. Female with history of a. fib and chronic anticoagulation with Warfarin. Home dose of warfarin: 2.5 mg po and 5 mg po . goal INR range= 2.0 to 3.0 date INR dose 07/01 4.14 no warfarin given 07/02 3.28 plan: 2 mg INR is supra-therapeutic today, but dropped considerably. Will give a Warfarin 2 mg dose po today. Potential drug-drug interaction exists between Ceftriaxone and Warfarin also Amiodarone and Warfarin. Both interactions have the potential to increase INR and risk of bleeding. Pharmacy will monitor and dose. Thank you, Lauren Thornton [facility]
--- NOTE | 2017-07-02 10:07 | XRay Report ---
Indication: possible right distal kidney stone-poorly defined on CT PROCEDURE: XR KUB: Encounter: Initial Comparison: Renal CT dated June 30, 2017 Findings: Basilar fibrosis and scarring. Bowel gas pattern is nonobstructive and nonspecific. No radiographically visible stones projecting over the kidneys or expected course of the ureters. Right hip replacement. Bony structures are unremarkable. Impression: No radiographically apparent urolithiasis. .
[2017-07-02] MEDS: ALBUTEROL 2.5mg/3ml (0.083%) NEB AEROSOL SCH ×2 (11:05→20:35)
[2017-07-02] MEDS ORDERED: WARFARIN 2 MG TABLET PO SCH (12:00)
[2017-07-02] MEDS: CEFTRIAXONE 1 G in NS 100 ML IV SCH (14:19)
[2017-07-02] MEDS ORDERED: NS with KCL 20 mEq 1,000 ML IV SCH (14:30)
[2017-07-02] MEDS ORDERED: IOHEXOL 300mg/ml 100ml INJECTION ONE (15:37)
[2017-07-02] MEDS: SALINE FLUSH 10ml SYRINGE IVF PRN (18:22)
[2017-07-02] MEDS ORDERED: FUROSEMIDE 40 MG/4 ML INJECTION IVP ONE (18:30)
[2017-07-02] MEDS ORDERED: BUDESONIDE/FORMOTEROL 80/4.5mcg INHALER ORAL INH SCH (21:04)
[2017-07-02] MEDS: RANITIDINE 150 MG TABLET PO SCH (21:39)
[2017-07-02] MEDS: SIMVASTATIN 20 MG TABLET PO SCH (21:40)
[2017-07-02] MEDS: AMIODARONE 200 MG TABLET PO SCH (21:40)
[2017-07-02] MEDS: ALPRAZolam 1 MG TABLET PO PRN (21:45)
[2017-07-02] MEDS: BUDESONIDE INH.SOLN 0.25mg/2ml NEB AEROSOL SCH (21:53)
[2017-07-02] MEDS: ARFORMOTEROL NEB 15mcg/2ml AEROSOL SCH (21:54)
[2017-07-03] MEDS: ACETAMINOPHEN 325 MG TABLET PO PRN (02:26)
[2017-07-03] MEDS: LEVOTHYROXINE 50 MCG TABLET PO SCH (06:06)
[2017-07-03] MEDS: ARFORMOTEROL NEB 15mcg/2ml AEROSOL SCH ×2 (08:15→20:08)
[2017-07-03] MEDS: BUDESONIDE INH.SOLN 0.25mg/2ml NEB AEROSOL SCH ×2 (08:15→20:08)
[2017-07-03 08:20] VITALS: BMI 34.2
--- NOTE | 2017-07-03 08:25 | CT Scan Report ---
Indication: flank pain-right, probable pyelo PROCEDURE: CT renal wo/w con: Encounter: Initial Comparison: June 30, 2017 Technique: Axial CT images were performed through the abdomen and pelvis before and after the administration of intravenous contrast. Delayed postcontrast images were also performed. Coronal and sagittal 2-dimensional reformats. Automated Exposure Control and Iterative Reconstruction dose reducing techniques were utilized. Contrast: Omnipaque 300 100 mL Findings: Atelectasis and scarring in the lung bases with calcified granulomas. Noncontrast images again show multiple hepatic cysts and splenic granulomas. No renal stones identified. Right hydronephrosis has improved with mild right hydroureter remaining. Postcontrast images show no enhancing liver masses or bile duct dilatation. The spleen enhances normally. Pancreas and adrenal glands are normal. The kidneys enhance normally. No bowel obstruction. Delayed postcontrast images show symmetric excretion of contrast from both renal collecting systems. No filling defects identified. No obvious ureteral stones. Mild bladder thickening. Impression: Inflammatory change surrounding the right kidney without evidence of focal pyelonephritis or renal abscess. Bladder inflammation suggesting cystitis. No definite obstructing stone or mass. There is a preliminary report by [employer]. .
[2017-07-03] MEDS: FLUTICASONE NASAL SPRAY 50mcg EA NOSTRIL SCH (08:37)
[2017-07-03] MEDS: SOTALOL 80 MG TABLET PO SCH ×2 (08:38→20:25)
--- NOTE | 2017-07-03 08:38 | Pharmacy Consult ---
Pharmacy Consult-Warfarin - Laboratory Information 07/01/17 07/01/17 07/02/17 04:01 04:01 04:06 Hgb 13.6 Hct 42.6 INR 4.14 H 3.28 H 07/02/17 07/03/17 07/03/17 04:06 04:27 04:27 Hgb 11.8 L D 11.9 L Hct 36.8 D 36.4 INR 2.35 H - Consult Information COUMADIN CONSULT (Recurring): 87 yr old female patient 5'1" 82 kg admitted for UTI sepsis Patient is on warfarin for chronic A Fib DATE INR DOSE 07/01/17 4.14 No Dose given 07/02/17 3.28 2 mg 07/03/17 2.35 Will give 4 mg today Patient's home dose is 2.5 mg on MoWeFr and 5 mg on SuTuThSa Patient is currently on Ceftriaxone which can increase the INR. Thank you. Ladi Holloway, PharmD
[2017-07-03] MEDS: Venlaflaxine XR 75 MG CAPSULE (24hr) PO SCH (08:39)
[2017-07-03] MEDS: OMEPRAZOLE 20 MG CAPSULE PO SCH (08:39)
[2017-07-03] MEDS: GABAPENTIN 100 MG CAPSULE PO SCH ×3 (08:39→20:25)
[2017-07-03] MEDS: ALBUTEROL 2.5mg/3ml (0.083%) NEB AEROSOL SCH (09:32)
[2017-07-03] MEDS ORDERED: WARFARIN 4 MG TABLET PO SCH (12:00)
--- NOTE | 2017-07-03 12:31 | Progress Note ---
- Date 07/03/17 Subjective: Fatou was joined by her . She is feeling better today. Her pain to her right flank isn't nearly as severe and the pain that wrapped around to her abdomen has nearly resolved. She still feels weak and fatigues easily, and feels just like resting all day. She doesn't have much energy. She continues with her chronic cough. She denies SOA or dizziness. She denies nausea/ vomiting. We reviewed CT findings. We also discussed the pacemaker interrogation report (and they were both surprised to hear that she still has a- fib). Objective Vital signs: Temperature 95.7 F L 07/03/17 11:00 Pulse Rate 60 07/03/17 11:00 Respiratory Rate 18 07/03/17 11:00 Blood Pressure 102/60 07/03/17 11:00 Pulse Oximetry 96 07/03/17 11:00 Rhythm: Atrial Fibrillation with Normal Ventricular Rate Height/Weight/BMI: Height 1.55 m Weight 82.2 kg Body Mass Index 34.2 - Constitutional Present: no acute distress, well nourished, well developed, obese - Routine HEENT Exam Head: Present: normocephalic Eye: Present: PERRL. Absent: conjunctival icterus, scleral injection - Routine Respiratory Exam Present: CTA bilaterally - Routine Cardiovascular Exam Present: S1, S2, irregularly irregular - Routine Abdominal Exam Present: soft, normoactive bowel sounds, tenderness (Very minimal tenderness to RUQ), non distended - Routine Extremities Exam Present: edema (L>R) - Routine Back/Spine/Pelvis Exam Back/Spine: Present: CVA tenderness (right - improving) - Routine Musculoskeletal Exam Musculoskeletal: Present: moving extremities well - Routine Skin Exam Present: intact, dry, warm, ecchymosis (B/L arms) - Routine Neurological Exam Present: alert, oriented X3, CN II-XII intact, normal speech - Routine Psychiatric Exam Present: normal affect, normal thought process, cooperative Results - Labs CBC & Chem 7: 07/03/17 04:27 07/03/17 04:27 Assessment and Plan (1) Severe sepsis Current visit: Yes Status: Acute Assessment and Plan: Impression Severe sepsis- Venous lactate greater than 2.1. Fever of 103.3, tachycardia-107 Urinary tract infection - E. coli Hypokalemia, not POA Flank pain, bilateral Failed outpatient treatment Hypernatremia - present on admission - resolved elevated INR - 4.3 on admission Paroxysmal Atrial fibrillation Hyperlipidemia Congestive heart failure- Right sided Asthma/COPD GERD Depression Chronic back pain Leukocytosis 07/03 CT scan repeated: Right hydronephrosis has improved with mild right hydroureter remaining. Delayed postcontrast images show symmetric excretion of contrast from both renal collecting systems. No filling defects identified. No obvious ureteral stones. Mild bladder thickening. Inflammatory change surrounding the right kidney without evidence of focal pyelonephritis or renal abscess. Bladder inflammation suggesting cystitis. No definite obstructing stone or mass. Sx more consistent with pyelonephritis versus stone. Pain/CVA tenderness improving. WBC normal; Afebrile. Continue Rocephin, day #4. BC negative to date. INR 2.35. Coumadin 4 mg given today per pharmacy. Consult PT/OT to assess functional mobility. CM to inquire about meals on wheels. Dr. Pablo discussed A-fib treatment with Dr. Ford: amiodarone discontinued. Consideration being given to increasing Cardizem or sotalol. QTc = 403 ms. DVT Prophylaxis: Coumadin GI Prophylaxis: Omeprazole Resuscitation Status: Do Not Resuscitate - Physician Narrative Physician: Angie Pablo MD Narrative: Date: 07/03/17 Time: 1944 I have independently evaluated and examined this patient. I reviewed the chart, the patient's history, and the SALES SECRETARY/PA's documented findings as above. We discussed and formulated the assessment and plan as above with additions as below: Mrs. Ludwig reports no recurrent shaking, back pain, or dysuria. I advised her of my conversation with both radiology comparing the initial renal CT and repeat renal CT and my discussion with Dr. Ford with options to continue or discontinue antiarrhythmics. NAD, alert, respirations nonlabored with good airflow, breath sounds clear No flank pain present at the time of my exam No clear indication of nephrolithiasis on repeat CT nor are there clinical findings to suggest nephrolithiasis. Continue treatment of pyelonephritis-reassess in a.m. to determine if parenteral antibiotics are needed or if stable to convert to Keflex or alternate cephalosporin. Discontinue amiodarone, continue sotalol/diltiazem at current doses for rate control with planned follow-up with Dr. Ford in the near future for reassessment. We briefly discussed discontinuation of sotalol with increased dose diltiazem but elected to make 1 change in cardiac medications at a time. Hospital Course Summary Disclaimer: The visit summary below is not to be considered part of the above Progress Note. Hospital Course: Impression Severe sepsis- Venous lactate greater than 2.1. Fever of 103.3, tachycardia-107 Urinary tract infection Flank pain and bilateral Failed outpatient treatment Hypernatremia -present on admission elevated INR- 4.3 on admission Chronic Atrial fibrillation Hyperlipidemia Congestive heart failure- Right sided Asthma/COPD GERD Depression Chronic back pain Plan Admit patient as inpatient status -she does meet criteria, given severe sepsis with failed outpatient treatment. She was started on IV Rocephin while in the emergency room. Blood cultures and urine culture are pending. Initial lactate is elevated at 2.3. We will repeat this as per sepsis protocol. qSOFA score- time of admission score is 1 out of 3 revealing low risk of sepsis mortality. Need to monitor carefully Continue with IV Rocephin 1 gram daily as this is excepted monotherapy. Obtain Ct renal to for pyelonephritis versus renal calculi Patient did receive 1 liter of normal saline while in the emergency room. We will continue saline at 100 mL per hour. Suspect the patient is intravascularly dehydrated. However, extra vascularly edematous state, i.e., lower extremity edema She does routinely take Lasix 60 mg twice a day. Will initially place this on hold. However, will have to monitor patient carefully for fluid overload, pulmonary edema, etc. Kailash Hose to bilateral lower extremities to help with peripheral edema Will resume all other home mediations other that lasix and potassium Consult pharmacy for Coumadin dosing- INR today is 4.3 Does wish to be a do not resuscitate and this order is written Will discuss further orders and plan of care with attending, Dr. Pablo At time of discharge medical care will return to primary care provider, Stella Naranjo APRN at [facility] 07/01 Patient reports she is feeling better. New leukocytosis today (WBC 12.1) as well as new hyperglycemia (Glu 121). Lactate trending down (2.3-->1.1). Continue Rocephin for UTI. UA culture revealed E. Coli with sensitivities pending. Blood cultures pending. INR remains elevated (4.14). Pharmacy monitoring. CT revealed right hydronephrosis and hydroureter with inflammation which could be due to a right distal ureteral stone that is obscured by metallic artifact from right hip, a recently passed stone or potentially pyelonephritis. Check KUB today. Will strain urine and monitor urinary output closely. History of a-fib. Continue to monitor closely on telemetry. HR variable (60's then tachycardiac ~110). Pacemaker to be interrogated to determine chronicity of paroxysmal atrial fibrillation. Check QTC on sotalol. Weight trending up. She does routinely take Lasix 60 mg twice a day. Will initially place this on hold. However, will have to monitor patient carefully for fluid overload, pulmonary edema, etc. Patient continues to require supplemental oxygen. Crackles bibasilar. Denies home oxygen use. Encourage incentive spirometry. Monitor for signs of fluid overload. Will decrease IV fluids to 75cc/hr and encourage oral intake. 07/02 WBC improved to 10.8, afebrile. UC pos for E. coli sensitive to Rocephin ( today is Day #3) K decreased to 3.3 - orally replaced. DC IVF - adequate PO intake. Na 144. INR 3.28 - Coumadin per pharmacy. Tele reviewed - she was in a-fib on first glance and when I later reviewed there were p-waves. Hx PAF - pacemaker interrogation ordered yesterday. Maintaining sats on room air today. repeat CT scan. 07/03 CT scan repeated: Right hydronephrosis has improved with mild right hydroureter remaining. Delayed postcontrast images show symmetric excretion of contrast from both renal collecting systems. No filling defects identified. No obvious ureteral stones. Mild bladder thickening. Inflammatory change surrounding the right kidney without evidence of focal pyelonephritis or renal abscess. Bladder inflammation suggesting cystitis. No definite obstructing stone or mass. Sx more consistent with pyelonephritis versus stone. Pain/CVA tenderness improving. WBC normal; Afebrile. Continue Rocephin, day #4. BC negative to date. INR 2.35. Coumadin 4 mg given today per pharmacy. Consult PT/OT to assess functional mobility. CM to inquire about meals on wheels. Dr. Pablo discussed A-fib treatment with Dr. Ford: amiodarone discontinued. Consideration being given to increasing Cardizem or sotalol. QTc = 403 ms.
[2017-07-03] MEDS: CEFTRIAXONE 1 G in NS 100 ML IV SCH (14:31)
[2017-07-03] MEDS: SIMVASTATIN 20 MG TABLET PO SCH (20:25)
[2017-07-03] MEDS: RANITIDINE 150 MG TABLET PO SCH (20:25)
[2017-07-03] MEDS: ALPRAZolam 1 MG TABLET PO PRN (20:28)
[2017-07-03] MEDS ORDERED: ARFORMOTEROL NEB 15mcg/2ml AEROSOL SCH (21:20)
[2017-07-03] MEDS ORDERED: BUDESONIDE INH.SOLN 0.25mg/2ml NEB AEROSOL SCH (21:21)
[2017-07-04] MEDS: ACETAMINOPHEN 325 MG TABLET PO PRN (02:59)
[2017-07-04] MEDS: ALPRAZolam 1 MG TABLET PO PRN (04:01)
[2017-07-04] MEDS: LEVOTHYROXINE 50 MCG TABLET PO SCH (06:42)
--- NOTE | 2017-07-04 07:55 | Pharmacy Consult ---
Pharmacy Consult-Warfarin - Laboratory Information 07/01/17 07/01/17 07/02/17 04:01 04:01 04:06 Hgb 13.6 Hct 42.6 INR 4.14 H 3.28 H 07/02/17 07/03/17 07/03/17 04:06 04:27 04:27 Hgb 11.8 L D 11.9 L Hct 36.8 D 36.4 INR 2.35 H 07/04/17 07/04/17 04:18 05:05 Hgb 11.2 L Hct 35.4 L INR 2.30 H - Consult Information INR is stabilizing with an oral 4mg dose of warfarin. We will give another 4mg of warfarin p.o. today. Thanks
[2017-07-04] MEDS: ARFORMOTEROL NEB 15mcg/2ml AEROSOL SCH ×2 (08:25→20:19)
[2017-07-04] MEDS: BUDESONIDE INH.SOLN 0.25mg/2ml NEB AEROSOL SCH ×2 (08:25→20:19)
[2017-07-04] MEDS: Venlaflaxine XR 75 MG CAPSULE (24hr) PO SCH (08:31)
[2017-07-04] MEDS: GABAPENTIN 100 MG CAPSULE PO SCH ×3 (08:31→20:48)
[2017-07-04] MEDS: OMEPRAZOLE 20 MG CAPSULE PO SCH (08:31)
[2017-07-04] MEDS: SOTALOL 80 MG TABLET PO SCH ×2 (08:32→20:48)
[2017-07-04] MEDS: FLUTICASONE NASAL SPRAY 50mcg EA NOSTRIL SCH (08:32)
--- NOTE | 2017-07-04 09:26 | Progress Note ---
- Date 07/04/17 Subjective: Fatou is seen today in follow up. She is up condition breakfast. Overall, she states that she is feeling better. She does continue to have some mild lumbar back pain which is chronic. This is different from her CVA tenderness on the right originally. Denies chest pain or shortness of breath. Does report a cough intermittently. Noted to have episode of hypoxia this morning to 88%. Appetite continues to improve. He has been up and ambulating with assistance. Objective Vital signs: Temperature 97.2 F 07/04/17 07:34 Pulse Rate 61 07/04/17 08:32 Respiratory Rate 22 07/04/17 08:25 Blood Pressure 122/66 07/04/17 07:34 Pulse Oximetry 93 07/04/17 08:25 Height/Weight/BMI: Height 1.55 m Weight 82.2 kg Body Mass Index 34.2 - Constitutional Present: no acute distress, well nourished, well developed - Routine HEENT Exam Eye: Present: EOMI ENT: Present: mucous membranes moist, dentition normal - Routine Respiratory Exam Present: CTA bilaterally. Absent: wheezes - Routine Cardiovascular Exam Present: RRR, S1, S2. Absent: murmur - Routine Abdominal Exam Present: soft, normoactive bowel sounds, non distended. Absent: tenderness - Routine Extremities Exam Present: normal capillary refill - Routine Back/Spine/Pelvis Exam Back/Spine: Present: full ROM - Routine Skin Exam Present: intact, dry, warm - Routine Neurological Exam Present: alert, oriented X3, CN II-XII intact - Routine Lymphatic Exam Lymphatic: Absent: adenopathy - Routine Psychiatric Exam Present: normal affect, normal thought process, cooperative Results - Labs CBC & Chem 7: 07/04/17 04:18 07/04/17 04:18 Assessment and Plan (1) Severe sepsis Current visit: Yes Status: Acute Assessment and Plan: Impression Severe sepsis- Venous lactate greater than 2.1. Fever of 103.3, tachycardia-107 Urinary tract infection - E. coli Hypokalemia, not POA Flank pain, bilateral Failed outpatient treatment Hypernatremia - present on admission - resolved elevated INR - 4.3 on admission Paroxysmal Atrial fibrillation Hyperlipidemia Congestive heart failure- Right sided Asthma/COPD GERD Depression Chronic back pain Leukocytosis Plan Today is day 5 of IV Rocephin. Blood cultures remain negative. CVA tenderness continues to improve. Repeated CT scan does reveal improvement in right hydronephrosis Consult PT/OT to assess functional mobility. Encourage ambulation 4 times a day Plans to discharge home with DVT Prophylaxis: SCD's, Coumadin Resuscitation Status: Do Not Resuscitate - Time spent with patient Time with patient PN: 25 minutes - Physician Narrative Physician: Jason Hyatt MD Narrative: Date: 07/04/17 Time: 1728 Have independently interviewed and examined pt. Chart reviewed. Case discussed with CM and my SALES ANALYST. Care plan developed with my supervision; agree with above. Doing well today. Strength improving-ambulating in estes and able to go further each time (tiring with activities). No f/c. Eating well. Breathing stable. Lungs: decreased, no distress CV: regular AB: soft nt/nd MSE: awake alert appropriate Plan: Will continue Rocephin. Encourage continued ambulation. Recheck lab in am. Possible home tomorrow if continues to do well. Hospital Course Summary Disclaimer: The visit summary below is not to be considered part of the above Progress Note. Hospital Course: Impression Severe sepsis- Venous lactate greater than 2.1. Fever of 103.3, tachycardia-107 Urinary tract infection Flank pain and bilateral Failed outpatient treatment Hypernatremia -present on admission elevated INR- 4.3 on admission Chronic Atrial fibrillation Hyperlipidemia Congestive heart failure- Right sided Asthma/COPD GERD Depression Chronic back pain Plan Admit patient as inpatient status -she does meet criteria, given severe sepsis with failed outpatient treatment. She was started on IV Rocephin while in the emergency room. Blood cultures and urine culture are pending. Initial lactate is elevated at 2.3. We will repeat this as per sepsis protocol. qSOFA score- time of admission score is 1 out of 3 revealing low risk of sepsis mortality. Need to monitor carefully Continue with IV Rocephin 1 gram daily as this is excepted monotherapy. Obtain Ct renal to for pyelonephritis versus renal calculi Patient did receive 1 liter of normal saline while in the emergency room. We will continue saline at 100 mL per hour. Suspect the patient is intravascularly dehydrated. However, extra vascularly edematous state, i.e., lower extremity edema She does routinely take Lasix 60 mg twice a day. Will initially place this on hold. However, will have to monitor patient carefully for fluid overload, pulmonary edema, etc. Kailash Mirza to bilateral lower extremities to help with peripheral edema Will resume all other home mediations other that lasix and potassium Consult pharmacy for Coumadin dosing- INR today is 4.3 Does wish to be a do not resuscitate and this order is written Will discuss further orders and plan of care with attending, Dr. Pablo At time of discharge medical care will return to primary care provider, Stella Naranjo APRN at [facility] 07/01 Patient reports she is feeling better. New leukocytosis today (WBC 12.1) as well as new hyperglycemia (Glu 121). Lactate trending down (2.3-->1.1). Continue Rocephin for UTI. UA culture revealed E. Coli with sensitivities pending. Blood cultures pending. INR remains elevated (4.14). Pharmacy monitoring. CT revealed right hydronephrosis and hydroureter with inflammation which could be due to a right distal ureteral stone that is obscured by metallic artifact from right hip, a recently passed stone or potentially pyelonephritis. Check KUB today. Will strain urine and monitor urinary output closely. History of a-fib. Continue to monitor closely on telemetry. HR variable (60's then tachycardiac ~110). Pacemaker to be interrogated to determine chronicity of paroxysmal atrial fibrillation. Check QTC on sotalol. Weight trending up. She does routinely take Lasix 60 mg twice a day. Will initially place this on hold. However, will have to monitor patient carefully for fluid overload, pulmonary edema, etc. Patient continues to require supplemental oxygen. Crackles bibasilar. Denies home oxygen use. Encourage incentive spirometry. Monitor for signs of fluid overload. Will decrease IV fluids to 75cc/hr and encourage oral intake. 07/02 WBC improved to 10.8, afebrile. UC pos for E. coli sensitive to Rocephin ( today is Day #3) K decreased to 3.3 - orally replaced. DC IVF - adequate PO intake. Na 144. INR 3.28 - Coumadin per pharmacy. Tele reviewed - she was in a-fib on first glance and when I later reviewed there were p-waves. Hx PAF - pacemaker interrogation ordered yesterday. Maintaining sats on room air today. repeat CT scan. 07/03 CT scan repeated: Right hydronephrosis has improved with mild right hydroureter remaining. Delayed postcontrast images show symmetric excretion of contrast from both renal collecting systems. No filling defects identified. No obvious ureteral stones. Mild bladder thickening. Inflammatory change surrounding the right kidney without evidence of focal pyelonephritis or renal abscess. Bladder inflammation suggesting cystitis. No definite obstructing stone or mass. Sx more consistent with pyelonephritis versus stone. Pain/CVA tenderness improving. WBC normal; Afebrile. Continue Rocephin, day #4. BC negative to date. INR 2.35. Coumadin 4 mg given today per pharmacy. Consult PT/OT to assess functional mobility. CM to inquire about meals on wheels. Dr. Pablo discussed A-fib treatment with Dr. Ford: amiodarone discontinued. Consideration being given to increasing Cardizem or sotalol. QTc = 403 ms. 07/04 Today is day 5 of IV Rocephin. Blood cultures remain negative. CVA tenderness continues to improve. Repeated CT scan does reveal improvement in right hydronephrosis. Consult PT/OT to assess functional mobility. Encourage ambulation 4 times a day. Plans to discharge home with . Addendum entered and electronically signed by Nicole Hidalgo APRN 07/04/17 12 :01: Will resume home-Lasix 60 milligrams twice a day. Will also resume potassium 40 milliequivalents in the morning, 20 milliequivalents at night. We'll give a one- time dose of 40 milliequivalents now
[2017-07-04] MEDS ORDERED: FUROSEMIDE 40 MG TABLET PO SCH (11:30)
[2017-07-04] MEDS ORDERED: FUROSEMIDE 20 MG TABLET PO ONE (11:56)
[2017-07-04] MEDS ORDERED: WARFARIN 4 MG TABLET PO SCH (12:00)
[2017-07-04] MEDS ORDERED: NS FLUSH BAG 500ml IV PRN (14:52)
[2017-07-04] MEDS: CEFTRIAXONE 1 G in NS 100 ML IV SCH (14:53)
[2017-07-04] MEDS: SALINE FLUSH 10ml SYRINGE IVF PRN (14:54)
[2017-07-04] MEDS ORDERED: FUROSEMIDE 20 MG TABLET PO SCH (17:00)
[2017-07-04] MEDS: FUROSEMIDE 20 MG TABLET PO SCH (17:03)
[2017-07-04] MEDS: RANITIDINE 150 MG TABLET PO SCH (20:48)
[2017-07-04] MEDS: SIMVASTATIN 20 MG TABLET PO SCH (20:48)
[2017-07-05] MEDS: ACETAMINOPHEN 325 MG TABLET PO PRN (04:51)
[2017-07-05] MEDS: LEVOTHYROXINE 50 MCG TABLET PO SCH (06:31)
[2017-07-05] MEDS: ARFORMOTEROL NEB 15mcg/2ml AEROSOL SCH (06:39)
[2017-07-05] MEDS: BUDESONIDE INH.SOLN 0.25mg/2ml NEB AEROSOL SCH (06:39)
[2017-07-05 07:40] VITALS: RESP 16
--- NOTE | 2017-07-05 07:54 | Pharmacy Consult ---
Pharmacy Consult-Warfarin - Laboratory Information 07/01/17 07/01/17 07/02/17 04:01 04:01 04:06 Hgb 13.6 Hct 42.6 INR 4.14 H 3.28 H 07/02/17 07/03/17 07/03/17 04:06 04:27 04:27 Hgb 11.8 L D 11.9 L Hct 36.8 D 36.4 INR 2.35 H 07/04/17 07/04/17 07/05/17 04:18 05:05 04:40 Hgb 11.2 L Hct 35.4 L INR 2.30 H 2.64 H 07/05/17 04:40 Hgb 11.3 L Hct 35.7 L INR - Consult Information 87 y.o. Female with history of a. fib and chronic anticoagulation with Warfarin. Home dose of warfarin: 2.5 mg po and 5 mg po . goal INR range= 2.0 to 3.0 date INR dose 07/01 4.14 no warfarin given 07/02 3.28 2 mg 07/03 2.35 4 mg 07/04 2.30 4 mg 07/05 2.64 plan: 3 mg Will give a Warfarin 3 mg dose po today. Potential drug-drug interaction exists between Ceftriaxone and Warfarin. This interaction has the potential to increase INR and risk of bleeding. Patient was admitted on Amiodarone (from home medication list) which also may potentiate Warfarin, Amiodarone was discontinued on 07/03/17. It is likely that stopping this medication will affect the patient's stable Warfarin dose. Pharmacy will monitor and dose. Thank you, Lauren Thornton [facility]
[2017-07-05] MEDS: OMEPRAZOLE 20 MG CAPSULE PO SCH (08:51)
[2017-07-05] MEDS: FUROSEMIDE 20 MG TABLET PO SCH (08:51)
[2017-07-05] MEDS: Venlaflaxine XR 75 MG CAPSULE (24hr) PO SCH (08:52)
[2017-07-05] MEDS: GABAPENTIN 100 MG CAPSULE PO SCH (08:52)
[2017-07-05] MEDS: SOTALOL 80 MG TABLET PO SCH (08:52)
[2017-07-05] MEDS: FLUTICASONE NASAL SPRAY 50mcg EA NOSTRIL SCH (08:55)
--- NOTE | 2017-07-05 10:29 | Progress Note ---
- Date 07/05/17 Subjective: F/U: Severe sepsis, Urinary tract infection with Ecol Doing well this morning. No f/c. Eating well. No nausea or ab pain. Breathing well. Strength stable-able to get around well. Lab stable. Feels up to going home. Objective Vital signs: Temperature 97.6 F 07/05/17 07:00 Pulse Rate 60 07/05/17 08:52 Respiratory Rate 16 07/05/17 07:00 Blood Pressure 118/56 07/05/17 07:00 Pulse Oximetry 90 07/05/17 07:00 Rhythm: Atrial Fibrillation with Normal Ventricular Rate Height/Weight/BMI: Height 1.55 m Weight 80.5 kg Body Mass Index 34.2 - Constitutional Present: no acute distress, well nourished, well developed, obese, cooperative - Routine HEENT Exam Head: Present: normocephalic, atraumatic Eye: Present: EOMI, PERRL ENT: Present: mucous membranes moist - Routine Respiratory Exam Present: decreased breath sounds. Absent: respiratory distress, wheezes, crackles, distant breath sounds, diminished air movement - Routine Cardiovascular Exam Present: no murmur, irregular rhythm, irregularly irregular - Routine Abdominal Exam Present: soft, normoactive bowel sounds, non distended, non tender. Absent: guarding - Routine Extremities Exam Absent: cyanosis, clubbing - Routine Musculoskeletal Exam Musculoskeletal: Present: no clubbing or cyanosis, normal strength - Routine Skin Exam Present: dry, warm - Routine Neurological Exam Present: alert, oriented X3, CN II-XII intact, moving all extremities, vision grossly intact, hearing grossly intact, normal speech. Absent: motor deficit, altered mental status - Routine Psychiatric Exam Present: normal affect, normal thought process, cooperative Results - Labs CBC & Chem 7: 07/05/17 04:40 07/05/17 04:40 Assessment and Plan (1) Severe sepsis Current visit: Yes Status: Acute Assessment and Plan: Impression Severe sepsis - Venous lactate greater than 2.1. Fever of 103.3, tachycardia-107 Urinary tract infection - E. coli Hypokalemia (POA Flank pain, bilateral Failed outpatient treatment Hypernatremia (POA) Elevated INR - 4.3 on admission Paroxysmal Atrial fibrillation Hyperlipidemia Congestive heart failure- Right sided Asthma/COPD GERD Depression Chronic back pain Leukocytosis (POA) - resolved. Plan Clinically improved. Sepsis syndrome resolved. INR therapeutic. Strength and functional status improve. Will discharge home today after today's dose of ceftriaxone. Augmentin 875mg BID for 4 days. Will have patient use 2.5mg of warfarin while on Augmentin, then can return to prior home dose. Will need INR rechecked in 1 week to assess warfarin dose. With discontinuation of amiodarone, potentially need to decrease warfarin dose. Continue Sotalol and diltiazem for heart rate control. Will need evaluation with Dr Ford in 2 weeks for afib medication evaluation. Patient would like to follow with Millie Maharaj as Manjula Schwab is out of clinic for several weeks. F/U with Millie Maharaj in 1 week. Check BMP at that time secondary to medication use. Check INR at that time - may need recheck INR in 1 week. F/U with Dr Ford in 2 weeks for cardiac evaluation. Medically stable for discharge to home - see orders for details. Time spent with patient care and discharge greater than 30 minutes. DVT Prophylaxis: Coumadin Resuscitation Status: Do Not Resuscitate - Physician Narrative Physician: Jason Hyatt MD Narrative: Date: 07/05/17 Time: 1026 Hospital Course Summary Disclaimer: The visit summary below is not to be considered part of the above Progress Note. Hospital Course: 06/30/17 Admission Admit patient as inpatient status -she does meet criteria, given severe sepsis with failed outpatient treatment. She was started on IV Rocephin while in the emergency room. Blood cultures and urine culture are pending. Initial lactate is elevated at 2.3. We will repeat this as per sepsis protocol. qSOFA score- time of admission score is 1 out of 3 revealing low risk of sepsis mortality. Need to monitor carefully. Continue with IV Rocephin 1 gram daily as this is excepted monotherapy. Obtain Ct renal to for pyelonephritis versus renal calculi. Patient did receive 1 liter of normal saline while in the emergency room. We will continue saline at 100 mL per hour. Suspect the patient is intravascularly dehydrated. However, extra vascularly edematous state, i.e., lower extremity edema. She does routinely take Lasix 60 mg twice a day. Will initially place this on hold. However, will have to monitor patient carefully for fluid overload, pulmonary edema, etc. Kailash Hose to bilateral lower extremities to help with peripheral edema. Will resume all other home mediations other that Lasix and potassium. Consult pharmacy for Coumadin dosing- INR today is 4.3. Does wish to be a do not resuscitate and this order is written. At time of discharge medical care will return to primary care provider, Manjula Naranjo APRN at [facility]. 07/01 Patient reports she is feeling better. New leukocytosis today (WBC 12.1) as well as new hyperglycemia (Glu 121). Lactate trending down (2.3-->1.1). Continue Rocephin for UTI. UA culture revealed E. Coli with sensitivities pending. Blood cultures pending. INR remains elevated (4.14). Pharmacy monitoring. CT revealed right hydronephrosis and hydroureter with inflammation which could be due to a right distal ureteral stone that is obscured by metallic artifact from right hip, a recently passed stone or potentially pyelonephritis. Check KUB today. Will strain urine and monitor urinary output closely. History of a-fib. Continue to monitor closely on telemetry. HR variable (60's then tachycardiac ~110). Pacemaker to be interrogated to determine chronicity of paroxysmal atrial fibrillation. Check QTC on sotalol. Weight trending up. She does routinely take Lasix 60 mg twice a day. Will initially place this on hold. However, will have to monitor patient carefully for fluid overload, pulmonary edema, etc. Patient continues to require supplemental oxygen. Crackles bibasilar. Denies home oxygen use. Encourage incentive spirometry. Monitor for signs of fluid overload. Will decrease IV fluids to 75cc/hr and encourage oral intake. 07/02 WBC improved to 10.8, afebrile. UC pos for E. coli sensitive to Rocephin ( today is Day #3). K decreased to 3.3 - orally replaced. DC IVF - adequate PO intake. Na 144. INR 3.28 - Coumadin per pharmacy. Tele reviewed - she was in a-fib on first glance and when I later reviewed there were p-waves. Hx PAF - pacemaker interrogation ordered yesterday. Maintaining sats on room air today. Repeat CT scan. 07/03 CT scan repeated: Right hydronephrosis has improved with mild right hydroureter remaining. Delayed postcontrast images show symmetric excretion of contrast from both renal collecting systems. No filling defects identified. No obvious ureteral stones. Mild bladder thickening. Inflammatory change surrounding the right kidney without evidence of focal pyelonephritis or renal abscess. Bladder inflammation suggesting cystitis. No definite obstructing stone or mass. Sx more consistent with pyelonephritis versus stone. Pain/CVA tenderness improving. WBC normal; Afebrile. Continue Rocephin, day #4. BC negative to date. INR 2.35. Coumadin 4 mg given today per pharmacy. Consult PT/OT to assess functional mobility. CM to inquire about meals on wheels. Dr. Pablo discussed A-fib treatment with Dr. Ford: amiodarone discontinued. Consideration being given to increasing Cardizem or sotalol. QTc = 403 ms. 07/04 Today is day 5 of IV Rocephin. Blood cultures remain negative. CVA tenderness continues to improve. Repeated CT scan does reveal improvement in right hydronephrosis. Consult PT/OT to assess functional mobility. Encourage ambulation 4 times a day. Plans to discharge home with . 07/05/17 - Discharge Clinically improved. Sepsis syndrome resolved. INR therapeutic. Strength and functional status improve. Will discharge home today after today's dose of ceftriaxone. Augmentin 875mg BID for 4 days. Will have patient use 2.5mg of warfarin while on Augmentin, then can return to prior home dose. Will need INR rechecked in 1 week to assess warfarin dose. With discontinuation of amiodarone, potentially need to decrease warfarin dose. Continue Sotalol and diltiazem for heart rate control. Will need evaluation with Dr Ford in 2 weeks for afib medication evaluation. Patient would like to follow with Millie Maharaj as Manjula Schwab is out of clinic for several weeks. F/U with Millie Maharaj in 1 week. Check BMP at that time secondary to medication use. Check INR at that time - may need recheck INR in 1 week. F/U with Dr Ford in 2 weeks for cardiac evaluation. Medically stable for discharge to home - see orders for details.
[2017-07-05 10:59] VITALS: BP 127/70; PULSE 66; TEMP 98.1; O2SAT 93
[2017-07-05] MEDS: CEFTRIAXONE 1 G in NS 100 ML IV SCH ×2 (11:48→13:31)
[2017-07-05] MEDS ORDERED: WARFARIN 3 MG TABLET PO SCH (12:00)
--- NOTE | 2017-07-09 14:58 | Discharge Summary ---
Discharge Information Date of admission: 06/30/17 16:34 Anticipated date of discharge: 07/06/17 Attending Physician: Jason Hyatt MD Primary care physician: Manjula Schwab APRN - Discharge Diagnosis (1) Severe sepsis Status: Acute Discharge diagnosis Severe sepsis (POA) - resolved Manifestations: Venous lactate greater than 2.1, Fever of 103.3, tachycardia- 107 Discharge diagnosis Urinary tract infection - E. coli Hypokalemia (POA) Flank pain, bilateral Failed outpatient treatment Hypernatremia (POA) Elevated INR - 4.3 on admission Paroxysmal Atrial fibrillation Hyperlipidemia Congestive heart failure- Right sided Asthma/COPD GERD Depression Chronic back pain Leukocytosis (POA) - resolved. - Laboratory Labs: Admit Lab 06/30/17 12:51 WBC 10.4 Hgb 14.1 Hct 43.4 MCV 101.9 H Plt Count 168 Neut % (Auto) 79.3 H Lymph % (Auto) 12.8 L [place] % (Auto) 5.8 Eos % (Auto) 1.5 Baso % (Auto) 0.2 Admit INR 06/30/17 15:35 INR 4.30 H Admit Lab 06/30/17 07/02/17 13:49 04:06 Sodium 147 H Potassium 3.7 Chloride 100 Carbon Dioxide 31 H Anion Gap 16 H BUN 17.0 Creatinine 1.1 GFR Calculation 47 BUN/Creatinine Ratio 16 Glucose 97 Calculated Osmolality 284 H Uric Acid 4.7 Calcium 9.9 Total Bilirubin 0.50 Icterus Index < 2 AST 37 H ALT 29 Alkaline Phosphatase 85 Total Protein 7.8 Albumin 4.7 Globulin 3.1 Albumin/Globulin Ratio 1.5 Plasma Lactate 2.3 H 07/05/17 04:40 07/05/17 04:40 - Microbiology Urine culture with E coli. - Radiology Radiology: Date of Exam: 06/30/17 Type of Exam: XR chest 2V FINDINGS: No focal pneumonia, pleural effusion or pneumothorax. Mild fibrotic changes and senescent change. Heart size and mediastinal contours are stable. Left pacemaker. Impression: No acute cardiopulmonary disease. Date of Exam: 06/30/17 Type of Exam: CT renal wo con (stone magaly) Findings: Fibrosis and scarring in the lower lobes with a right lower lobe calcified granuloma. Multiple liver cysts. The gallbladder is unremarkable. Granulomas in the spleen. The pancreas and adrenal glands are normal. Left kidney is normal. Right kidney shows mild hydronephrosis and hydroureter due to a possible distal ureteral stone which may be obscured by the metallic artifact from the right hip prosthesis. Sigmoid diverticulosis without evidence of acute diverticulitis. Bone windows are unremarkable. Impression: Right hydronephrosis and hydroureter with inflammation could be due to a right distal ureteral stone that is obscured by metallic artifact from the hip replacement, a recently passed stone or potentially pyelonephritis. Urologic evaluation may be helpful. Date of Exam: 07/01/17 Type of Exam: XR KUB Findings: Basilar fibrosis and scarring. Bowel gas pattern is nonobstructive and nonspecific. No radiographically visible stones projecting over the kidneys or expected course of the ureters. Right hip replacement. Bony structures are unremarkable. Impression: No radiographically apparent urolithiasis. - Date of Exam: 07/02/17 Type of Exam(s): CT renal wo/w con Findings: Atelectasis and scarring in the lung bases with calcified granulomas. Noncontrast images again show multiple hepatic cysts and splenic granulomas. No renal stones identified. Right hydronephrosis has improved with mild right hydroureter remaining. Postcontrast images show no enhancing liver masses or bile duct dilatation. The spleen enhances normally. Pancreas and adrenal glands are normal. The kidneys enhance normally. No bowel obstruction. Delayed postcontrast images show symmetric excretion of contrast from both renal collecting systems. No filling defects identified. No obvious ureteral stones. Mild bladder thickening. Impression: Inflammatory change surrounding the right kidney without evidence of focal pyelonephritis or renal abscess. Bladder inflammation suggesting cystitis. No definite obstructing stone or mass. History of Present Illness HPI: 87 yr old female who is brought to the room today for acute evaluation. Her initial complaint was shaking, However, upon arrival she was found to have a fever of 102.4. Patient was treated by her primary care provider on 06/25/17 at [facility]. At that time she was found to have a urinary tract infection and was placed on Bactrim. Since that time she has continued to get worse. She reports initially had some mild right flank pain, however, is now having bilateral flank pain. Given her worsening symptoms, she presented to the ER today for acute evaluation. She was found to have fever up to 103.2, count was normal at 10.4, however, she did have 79% neutrophils. Initial lactate was found to be elevated at 2.3. Chemistry panel did reveal elevation of sodium at 147. Urinalysis does reveal acute infection with positive LE, positive RBCs, positive WBCs. She was given 1 liter IV fluid bolus as well as 1 gram of IV Rocephin. Given the severity of her illness, accompanied by failed outpatient treatment. The hospitalist services were contacted and accepted patient for inpatient admission for further evaluation and treatment. Patient describes dysuria with increased urinary frequency and increased urinary incontinence for the past 5 days. She does report having bilateral flank pain. She complains of generalized fatigue and weakness. She is chronically anticoagulated on warfarin due to chronic atrial fibrillation. Her INR today is 4.3. She does report having 1 episode of blood in the toilet last week on 06/25 while at the clinic. Unsure if blood was due to urinary tract infection or in her stool. His other history of a bleeding. Reports ongoing "swelling" peripheral edema and abdominal distention that has been present for months. He does have a known history of congestive heart failure and is on Lasix 60 milligrams twice a day. We did discuss advance directives. She does wish to be do not resuscitate For completed details of the H&P refer to that document. Objective Vital signs: Temperature 98.1 F 07/05/17 10:58 Pulse Rate 66 07/05/17 10:58 Respiratory Rate 16 07/05/17 10:58 Blood Pressure 127/70 07/05/17 10:58 Pulse Oximetry 93 07/05/17 10:58 Rhythm: Atrial Fibrillation with Normal Ventricular Rate Height/Weight/BMI: Height 1.55 m Weight 80.5 kg Body Mass Index 34.2 Hospital Course This is a general summary of the patient's hospital course. For more details refer to the complete medical record. Hospital course: 06/30/17 Admission Admit patient as inpatient status -she does meet criteria, given severe sepsis with failed outpatient treatment. She was started on IV Rocephin while in the emergency room. Blood cultures and urine culture are pending. Initial lactate is elevated at 2.3. We will repeat this as per sepsis protocol. qSOFA score- time of admission score is 1 out of 3 revealing low risk of sepsis mortality. Need to monitor carefully. Continue with IV Rocephin 1 gram daily as this is excepted monotherapy. Obtain Ct renal to for pyelonephritis versus renal calculi. Patient did receive 1 liter of normal saline while in the emergency room. We will continue saline at 100 mL per hour. Suspect the patient is intravascularly dehydrated. However, extra vascularly edematous state, i.e., lower extremity edema. She does routinely take Lasix 60 mg twice a day. Will initially place this on hold. However, will have to monitor patient carefully for fluid overload, pulmonary edema, etc. Kailash Hose to bilateral lower extremities to help with peripheral edema. Will resume all other home mediations other that Lasix and potassium. Consult pharmacy for Coumadin dosing- INR today is 4.3. Does wish to be a do not resuscitate and this order is written. At time of discharge medical care will return to primary care provider, Manjula Naranjo APRN at [facility]. 07/01 Patient reports she is feeling better. New leukocytosis today (WBC 12.1) as well as new hyperglycemia (Glu 121). Lactate trending down (2.3-->1.1). Continue Rocephin for UTI. UA culture revealed E. Coli with sensitivities pending. Blood cultures pending. INR remains elevated (4.14). Pharmacy monitoring. CT revealed right hydronephrosis and hydroureter with inflammation which could be due to a right distal ureteral stone that is obscured by metallic artifact from right hip, a recently passed stone or potentially pyelonephritis. Check KUB today. Will strain urine and monitor urinary output closely. History of a-fib. Continue to monitor closely on telemetry. HR variable (60's then tachycardiac ~110). Pacemaker to be interrogated to determine chronicity of paroxysmal atrial fibrillation. Check QTC on sotalol. Weight trending up. She does routinely take Lasix 60 mg twice a day. Will initially place this on hold. However, will have to monitor patient carefully for fluid overload, pulmonary edema, etc. Patient continues to require supplemental oxygen. Crackles bibasilar. Denies home oxygen use. Encourage incentive spirometry. Monitor for signs of fluid overload. Will decrease IV fluids to 75cc/hr and encourage oral intake. 07/02 WBC improved to 10.8, afebrile. UC pos for E. coli sensitive to Rocephin ( today is Day #3). K decreased to 3.3 - orally replaced. DC IVF - adequate PO intake. Na 144. INR 3.28 - Coumadin per pharmacy. Tele reviewed - she was in a-fib on first glance and when I later reviewed there were p-waves. Hx PAF - pacemaker interrogation ordered yesterday. Maintaining sats on room air today. Repeat CT scan. 07/03 CT scan repeated: Right hydronephrosis has improved with mild right hydroureter remaining. Delayed postcontrast images show symmetric excretion of contrast from both renal collecting systems. No filling defects identified. No obvious ureteral stones. Mild bladder thickening. Inflammatory change surrounding the right kidney without evidence of focal pyelonephritis or renal abscess. Bladder inflammation suggesting cystitis. No definite obstructing stone or mass. Sx more consistent with pyelonephritis versus stone. Pain/CVA tenderness improving. WBC normal; Afebrile. Continue Rocephin, day #4. BC negative to date. INR 2.35. Coumadin 4 mg given today per pharmacy. Consult PT/OT to assess functional mobility. CM to inquire about meals on wheels. Dr. Pablo discussed A-fib treatment with Dr. Ford: amiodarone discontinued. Consideration being given to increasing Cardizem or sotalol. QTc = 403 ms. 07/04 Today is day 5 of IV Rocephin. Blood cultures remain negative. CVA tenderness continues to improve. Repeated CT scan does reveal improvement in right hydronephrosis. Consult PT/OT to assess functional mobility. Encourage ambulation 4 times a day. Plans to discharge home with . 07/05/17 - Discharge Clinically improved. Sepsis syndrome resolved. INR therapeutic. Strength and functional status improve. Will discharge home today after today's dose of ceftriaxone. Augmentin 875mg BID for 4 days. Will have patient use 2.5mg of warfarin while on Augmentin, then can return to prior home dose. Will need INR rechecked in 1 week to assess warfarin dose. With discontinuation of amiodarone, potentially need to decrease warfarin dose. Continue Sotalol and diltiazem for heart rate control. Will need evaluation with Dr Ford in 2 weeks for afib medication evaluation. Patient would like to follow with Millie Maharaj as Manjula Schwab is out of clinic for several weeks. F/U with Millie Maharaj in 1 week. Check BMP at that time secondary to medication use. Check INR at that time - may need recheck INR in 1 week. F/U with Dr Ford in 2 weeks for cardiac evaluation. Medically stable for discharge to home - see orders for details. Time spent with patient: discharge greater than 30 minutes Resuscitation Status: Do Not Resuscitate Discharge Plan - Discharge Disposition Discharge Date: 07/05/17 Disposition: 01 Discharged Home, Self-Care *Condition: Stable Reason For Visit (Visit label in EMR): UTI - Discharge Medications *Discharge Medications: New Amox/Clav [Augmentin 875/125] 875 mg PO BID #8 tab Arformoterol Neb [Brovana Neb] 15 mcg AEROSOL RTBID vial Budesonide Inhalation [Pulmicort Inhalation] 0.25 mg AEROSOL RTBID #60 vial Continue Carisoprodol [Soma] 350 mg PO BID Gabapentin [Neurontin] 100 mg PO TID dilTIAZem HCl [Dilt-Xr] 120 mg PO HS Ranitidine [Zantac] 150 mg PO HS Warfarin Sodium 2.5 mg PO MOWEFR Warfarin Sodium 5 mg PO SUTUTHSA Furosemide [Lasix 40 mg Tab] 60 mg PO BID Fluticasone Propionate 1 spray EA NOSTRIL DAILY Venlafaxine HCl [Venlafaxine HCl ER] 75 mg PO DAILY Levothyroxine Sodium 50 mcg PO ACB Potassium Chloride 40 meq PO DAILY Simvastatin 20 mg PO HS Omeprazole [Prilosec] 20 mg PO DAILY Albuterol HFA Inhaler [Ventolin Hfa 90 mcg/actuation] 2 puff INH BID ALPRAZolam [Alprazolam] 2 mg PO BID PRN PRN Reason: Prn Orders Sotalol [Betapace] 80 mg PO BID Potassium Chloride [K-DUR 20 mEq Tablet] 1 tab PO HS Discontinued Amiodarone [Pacerone] 100 mg PO HS - Discharge Packet/Instructions *Diet: Low sodium *Activity: As tolerated *Pain Management/Treatment: Continue prior home pain medications *Wound Care: N/A Additional Instructions: Start Augmentin on July 06, 2017 and use twice a day for 4 days. While taking Augmentin, use only 2.5mg of warfarin (Coumadin). Wear compression stocking to help minimize edema. STOP amiodarone. *Expected Signs/Symptoms: Improvement of strength and functional status. *Notify Physician if: Temp >100.4. Fever/chills. Uncontrolled diarrhea. Increasing shortness of air. *During Business Hours Contact: Millie Branham *After Business Hours Contact: Call [facility] [place] and have Millie Branham or her covering provider contacted. *Pending Lab/Results: No Pending Lab - Referrals/Follow Up *Referrals/Follow Up: Bethel Roman MD [Physician] - (Continue pulmonary care with Dr Roman. ) Millie Branham, LOADING MANAGER [Advanced Practice Nurse] - 1 Week (Hospital follow up for Sepsis secondary to Ecoli UTI. Check BMP secondary to medicaiton use and INR due to Coumadin. Potenitally need recheck INR 1 week later. APPOINTMENT 07/12 AT 2PM.) Storm Ford MD [Physician] - 2 Weeks (Follow up for Afib - medication adjustement made during hospiatlization (amiodarone stopped)) - Patient Handouts Patient Handouts: Urinary Tract Infection in Women (GEN) - Dismissal Complete Discharge Instructions are:: Complete Physician Narrative - Narrative Physician: Jason Hyatt MD Attestation Narrative: Date: 07/09/17 Time: 8236 I have independently interviewed and examined patient prior to discharge. See my progress note for details. Medically stable for discharge to home.
== END 2017-07-05 15:30 | disposition home or self-care (01) | DRG 872 ==
LOC: ED 12:37 → EDHOLD 12:37 → MED 16:32 → SUATTDRO 16:34
PROVIDERS: ADMIT Internal Medicine; ATTEND Hospitalist

== ENCOUNTER 2017-07-14 17:12 | Inpatient (IN) ==
[2017-07-14] MEDS ORDERED: SALINE FLUSH 10ml SYRINGE IVF PRN (17:46)
[2017-07-14] MEDS ORDERED: NS 1,000 ML IV ONE (17:47)
[2017-07-14] MEDS ORDERED: ACETAMINOPHEN 500 MG TABLET PO ONE (17:47)
[2017-07-14] MEDS ORDERED: VANCOMYCIN 250mg/5ml ORAL LIQ PO ONE (17:49)
[2017-07-14] MEDS ORDERED: MetroNIDAZOLE PB 500 MG/100 ML BAG IV ONE (17:51)
--- NOTE | 2017-07-14 17:51 | Emergency Department Report ---
Fever HPI - General Chief Complaint: Medical Emergency Stated Complaint: FEVER,TACHY Time Seen by Provider: 07/14/17 17:42 Source: patient Mode of arrival: ambulatory Limitations: no limitations - History of Present Illness HPI Narrative: Pt presents for fever, weakness, near syncope today. In hospital recently for pneumonia and then developed diarrhea and weakness. Tested for C. difficile yesterday. Was scheduled to see her pcp later and start medication for it. Today, became severely weak, fever up to 102.5 found be EMS Pt complains of Nausea and weakness - Related Data Home Medications Medication Instructions Recorded Confirmed ALPRAZolam [Alprazolam] 2 mg PO BID PRN 06/30/17 07/14/17 Albuterol HFA Inhaler [Ventolin 2 puff INH BID 06/30/17 07/14/17 Hfa 90 mcg/actuation] Fluticasone Propionate 1 spray EA NOSTRIL DAILY 06/30/17 07/14/17 Furosemide [Lasix 40 mg Tab] 60 mg PO BID 06/30/17 07/14/17 Gabapentin [Neurontin] 100 mg PO TID 06/30/17 07/14/17 Levothyroxine Sodium 50 mcg PO ACB 06/30/17 07/14/17 Omeprazole [Prilosec] 20 mg PO DAILY 06/30/17 07/14/17 Potassium Chloride 40 meq PO DAILY 06/30/17 07/14/17 Ranitidine [Zantac] 150 mg PO HS 06/30/17 07/14/17 Simvastatin 20 mg PO HS 06/30/17 07/14/17 Sotalol [Betapace] 80 mg PO BID 06/30/17 07/14/17 Venlafaxine HCl [Venlafaxine HCl 75 mg PO DAILY 06/30/17 07/14/17 ER] dilTIAZem HCl [Dilt-Xr] 120 mg PO HS 06/30/17 07/14/17 Carisoprodol [Soma] 350 mg PO BID PRN 07/14/17 07/14/17 Warfarin [Coumadin] 2 mg PO DAILY 07/14/17 07/14/17 metroNIDAZOLE [Flagyl] 500 mg PO TID 07/14/17 07/14/17 Previous Rx's Medication Instructions Recorded Arformoterol Neb [Brovana Neb] 15 mcg AEROSOL RTBID vial 07/05/17 Budesonide Inhalation [Pulmicort 0.25 mg AEROSOL RTBID #60 vial 07/05/17 Inhalation] Allergies Allergy/AdvReac Type Severity Reaction Status Date / Time No Known Drug Allergies Allergy Unknown Verified 07/14/17 17:39 Review of Systems All systems: reviewed and negative except as stated PFSH Patient Stated Medical History Cataracts Yes Dental Problems Yes: Has dentures Hearing Loss Yes Cardiac Arrhythmia Yes Congestive Heart Failure Yes Asthma Yes Gastroesophageal Reflux Yes Disease Hiatal Hernia Yes: Current Hx Incontinence Yes: Stress/urge incontinence Hx Renal Disease No Osteoarthritis Yes Shingles Yes: No current breakout. Depression Yes Endometriosis Yes Clinic Medical History (Last Reviewed 07/12/17 @ 14:08 by ALEYDA Arevalo) CHF (congestive heart failure) (Acute Medical) Chronic back pain (Chronic Medical) Depression (Chronic Medical) Pulmonary hypertension (Chronic Medical) Thoracic back pain (Chronic Medical) Tricuspid insufficiency (Chronic Medical) Estrogen deficiency (Chronic Medical) Palpitations (Chronic Medical) PAF (paroxysmal atrial fibrillation) (Chronic Medical) GERD (gastroesophageal reflux disease) (Chronic Medical) Asthma (Chronic Medical) COPD (chronic obstructive pulmonary disease) (Chronic Medical) Hyperlipemia (Chronic Medical) Surgical History: Tonsillectomy 1939. FLAVIO/BSO with appendectomy 1973. Cataracts bilateral 2005. Lens implants bilateral 2007. Right total hip replacement 07/14/2010. Pacemaker Family History: Family History (Last Updated 07/12/17 @ 14:09 by ALEYDA Arevalo) Father , Age 66 CAD Coronary artery disease Mother , Age 64 Cerebral hemorrhage Atrial fibrillation Cerebral hemorrhage Brother , Age 64 Cardiomyopathy, history of heart recipient Heart recipient Cardiomyopathy Sister , Age 74 Cirrhosis of liver Cirrhosis Sister , Age 85 Alzheimer's Alzheimer's dementia Sister Cancer of colon Son Cancer of prostate - Social History Smoking status: Former smoker Substance use type: does not use Alcohol intake frequency: does not drink Housing: house Household members: spouse Current occupational status: retired Current residence: Apartment/Private Home Physical Exam - Limitations Limitations: no limitations - General General appearance: alert - Normal Exams: Head:: Normocephalic without trauma Eyes:: Pupils are PERRLA w/ EOMI, No scleral icterus, irritation, or foreign bodies noted ENMT:: No facial trauma, nasal exudates, pharyngeal erythema, or exudates are noted Neck:: Full range of motion, without adenopathy, JVD, bruits or thyromegaly Chest/Respirations:: Clear all de dios, with good airflow, and symmetry bilaterally Cardiovascular:: Regular rate and rhythm, without murmur or gallop, Pulses 2+ all extremities, capillary refill, <2 seconds all extremities Lymphatic:: No lymphadenopathy, or lymphedema noted Musculoskeletal:: No tenderness, or deformity noted, good range of motion, all extremities Integumentary:: No rashes, hives, or bruising noted, hair and nails, without abnormality Neurological:: Patient is alert, and oriented, cranial nerves, motor/sensory/ cerebellar, exams w/o gross deficits, to observation Psychiatric:: Patient exhibits, appropriate attention, emotion and affect - Abdominal Exam Abdominal exam: Present: soft, hyperactive bowel sounds. Absent: distention, tenderness, guarding, rebound, rigidity, trauma, psoas sign, obturator sign, Tran's sign, Rovsing's sign, tenderness at McBurney's Point, mass, bruit, pulsatile mass, hernia Fever - [facility] Narrative Medical decision making narrative: C. Diff + test yesterday - Started on Vancomycin PO and Flagyl IV in ER with 1LNS bolus CBC - elevated white blood cell count at 23,000 CMP - normal CXR - improved infiltrative pattern from prior films, no effusion is seen on this day. LACTATE - elevated 2.7 UA - pending Patient is started on oral vancomycin and IV Flagyl for C. difficile associated sepsis. Due to the patient's history of congestive heart failure, as well as her normal vital signs and pulse, initial IV bolus is 1 L in the ER, pending further boluses as required to maintain normal vital signs. Case is discussed with Dr. Keshav May, we'll admit inpatient ICU for severe sepsis associated with C. difficile colitis, urine culture pending. - Lab Data Result diagrams: 07/14/17 18:15 07/14/17 18:15 Critical Care Time Critical Care Time: Yes Total Critical Care Time: 45 Attestation: Patient presented with C. difficile colitis, severe sepsis, required aggressive intervention diagnostics and therapeutics. Disposition Clinical Impression: Severe sepsis, C. difficile colitis Disposition: To [facility] [place] Acute Care Condition: Stable Prescriptions: No Action Gabapentin [Neurontin] 100 mg PO TID dilTIAZem HCl [Dilt-Xr] 120 mg PO HS Ranitidine [Zantac] 150 mg PO HS Furosemide [Lasix 40 mg Tab] 60 mg PO BID Fluticasone Propionate 1 spray EA NOSTRIL DAILY Venlafaxine HCl [Venlafaxine HCl ER] 75 mg PO DAILY Levothyroxine Sodium 50 mcg PO ACB Potassium Chloride 40 meq PO DAILY Simvastatin 20 mg PO HS Omeprazole [Prilosec] 20 mg PO DAILY Arformoterol Neb [Brovana Neb] 15 mcg AEROSOL RTBID vial Carisoprodol [Soma] 350 mg PO BID PRN PRN Reason: Prn Orders Warfarin [Coumadin] 2 mg PO DAILY metroNIDAZOLE [Flagyl] 500 mg PO TID Albuterol HFA Inhaler [Ventolin Hfa 90 mcg/actuation] 2 puff INH BID ALPRAZolam [Alprazolam] 2 mg PO BID PRN PRN Reason: Prn Orders Sotalol [Betapace] 80 mg PO BID Budesonide Inhalation [Pulmicort Inhalation] 0.25 mg AEROSOL RTBID #60 vial Referrals: Millie Branham, FANNY [Primary Care Provider] - - Seen By: physician
[2017-07-14] MEDS ORDERED: ONDANSETRON 4 MG/2 ML INJECTION IVP ONE (18:18)
[2017-07-14] MEDS: NS FLUSH BAG 500ml IV PRN (18:20)
[2017-07-14] MEDS: NS 1,000 ML IV SCH ×4 (19:29→21:35)
[2017-07-14] MEDS ORDERED: ONDANSETRON 4 MG/2 ML INJECTION IVP PRN (20:51)
[2017-07-14 20:54] VITALS: BMI 32.9
--- NOTE | 2017-07-14 21:44 | History & Physical Report ---
History of Present Illness Date: 07/15/17 Chief complaint: diarrhea and weakness HPI: Patient seen via telemedicine with nursing assistance on 07/14/2017 Mrs. Ludwig is an 87yo woman with h/o COPD, CHF with essential HTN and paroxysmal afib, HH/GERD, hypothyroidism, and other just discharged last weed after admission for CAP. She presents from home wiht her at the bedside currently. Has had days of diarrhea with incontinence, no blood, and only mild abdominal pain. Nausea with one bout of emesis. Has a chronic cough with no productivity beyond baseline now. Noted fever over 102 and chills. No prior Cdiff positivity with lab send yesterday by PCP but not resulted evidently until today. Review of Systems All systems PM: 10-point ROS was reviewed, no additional remarkable complaints except Past Medical History Medical History: Medical History (Last Reviewed 07/12/17 @ 14:08 by ALEYDA Arevalo) CHF (congestive heart failure) (Acute) Chronic back pain (Chronic) Depression (Chronic) Pulmonary hypertension (Chronic) Thoracic back pain (Chronic) Tricuspid insufficiency (Chronic) Estrogen deficiency (Chronic) Palpitations (Chronic) PAF (paroxysmal atrial fibrillation) (Chronic) GERD (gastroesophageal reflux disease) (Chronic) Asthma (Chronic) COPD (chronic obstructive pulmonary disease) (Chronic) Hyperlipemia (Chronic) Surgical History: Tonsillectomy 193. FLAVIO/BSO with appendectomy 1973. Cataracts bilateral 2005. Lens implants bilateral 2007. Right total hip replacement 07/14/2010. Pacemaker Family History: Family History (Last Updated 07/12/17 @ 14:09 by ALEYDA Arevalo) Father , Age 66 CAD Coronary artery disease Mother , Age 64 Cerebral hemorrhage Atrial fibrillation Cerebral hemorrhage Brother , Age 64 Cardiomyopathy, history of heart recipient Heart recipient Cardiomyopathy Sister , Age 74 Cirrhosis of liver Cirrhosis Sister , Age 85 Alzheimer's Alzheimer's dementia Sister Cancer of colon Son Cancer of prostate Family History: As Above (nothing new) - Social History Smoking status: Never smoker Substance use type: does not use Alcohol intake frequency: does not drink Housing: house Household members: spouse Medications Home Medications Medication Instructions Recorded Confirmed Type ALPRAZolam [Alprazolam] 2 mg PO BID PRN 06/30/17 07/14/17 History Albuterol HFA Inhaler [Ventolin 2 puff INH BID 06/30/17 07/14/17 History Hfa 90 mcg/actuation] Fluticasone Propionate 1 spray EA NOSTRIL DAILY 06/30/17 07/14/17 History Furosemide [Lasix 40 mg Tab] 60 mg PO BID 06/30/17 07/14/17 History Gabapentin [Neurontin] 100 mg PO TID 06/30/17 07/14/17 History Levothyroxine Sodium 50 mcg PO ACB 06/30/17 07/14/17 History Omeprazole [Prilosec] 20 mg PO DAILY 06/30/17 07/14/17 History Potassium Chloride 40 meq PO DAILY 06/30/17 07/14/17 History Ranitidine [Zantac] 150 mg PO HS 06/30/17 07/14/17 History Simvastatin 20 mg PO HS 06/30/17 07/14/17 History Sotalol [Betapace] 80 mg PO BID 06/30/17 07/14/17 History Venlafaxine HCl [Venlafaxine HCl 75 mg PO DAILY 06/30/17 07/14/17 History ER] dilTIAZem HCl [Dilt-Xr] 120 mg PO HS 06/30/17 07/14/17 History Arformoterol Neb [Brovana Neb] 15 mcg AEROSOL RTBID vial 07/05/17 07/14/17 Rx Budesonide Inhalation [Pulmicort 0.25 mg AEROSOL RTBID #60 vial 07/05/17 Rx Inhalation] Carisoprodol [Soma] 350 mg PO BID PRN 07/14/17 07/14/17 History Warfarin [Coumadin] 2 mg PO DAILY 07/14/17 07/14/17 History metroNIDAZOLE [Flagyl] 500 mg PO TID 07/14/17 07/14/17 History Allergies Allergy/AdvReac Type Severity Reaction Status Date / Time No Known Drug Allergies Allergy Unknown Verified 07/14/17 17:39 Exam Vital Signs: Temperature 98.5 F 07/14/17 20:51 Pulse Rate 77 07/14/17 21:09 Respiratory Rate 20 07/14/17 21:23 Blood Pressure 92/46 07/14/17 21:15 Pulse Oximetry 94 07/14/17 21:23 Telemetry Rhythm: Sinus Rhythm Height/Weight/BMI: Height 1.55 m Weight 79 kg Body Mass Index 32.9 - Constitutional Present: mild distress - Routine HEENT Exam Head: Present: normocephalic, atraumatic Eye: Present: EOMI - Routine Neck Exam Present: full ROM - Routine Respiratory Exam Absent: accessory muscle use Comments: decreased throughout with increased expiratory phase, symmetric - Routine Cardiovascular Exam Present: RRR, no murmur - Routine Abdominal Exam Present: soft Comments: hyperactive bowel sounds, tender but no guarding - Routine Extremities Exam Absent: cyanosis, clubbing - Routine Skin Exam Present: intact. Absent: cyanosis - Routine Neurological Exam Present: alert, oriented X3, CN II-XII intact - Routine Psychiatric Exam Present: normal affect Results - Labs CBC & Chem 7: 07/15/17 04:30 07/15/17 04:30 Assessment and Plan (1) Severe sepsis Current visit: Yes Status: Acute (2) C. difficile colitis Current visit: Yes Status: Acute (3) CHF (congestive heart failure) Current visit: No Status: Acute (4) PAF (paroxysmal atrial fibrillation) Current visit: No Status: Chronic (5) GERD (gastroesophageal reflux disease) Current visit: No Status: Chronic (6) COPD (chronic obstructive pulmonary disease) Current visit: No Status: Chronic Assessment and Plan: 1. Acute Clostridium difficile colitis with severe sepsis as lactate 2.7 with WBC 23.1, T102.8, and rate controlled with diltiazem and sotalol. Admit to inpatient with goal 2400ml crystalloid cautiously with h/o chronic CHF. Cxs, Vancomycin PO, consider probiotics. Repeat lactate in the next hour. 2. Chronic CHF on lasix et al. Hold lasix for now. 3. Paroxysmal afib on sotalol, diltiazem and warfarin? Check AM INR. 4 Essential HTN--meds cautiously. 5. COPD on nebs/etc. Not hypoxic 6. Hypothyroidism on replacement DNR DVR prophylaxis - Physician Narrative Physician: Lin Aguirre MD Narrative: Date: 07/15/17 Time: 8:40 I have seen and examined the patient independently. I have reviewed the H&P above and agree. Please see my additions below. Patient was seen in CCU accompanied by her daughter and . Chief complaint: Weakness and diarrhea with recent diagnosis of C. difficile History of present illness: The patient is a pleasant 87-year-old female who is usually "on the go". She lives at home with her . She was admitted 06/30/2017 through 07/05/2017 with severe sepsis and urinary tract infection. Sometime over the past week she developed diarrhea and saw her primary care provider in the office a couple of days ago. Stool for C. difficile was positive and she was started on metronidazole. Yesterday, she was too weak to get out of bed and so her called EMS and she was brought into the emergency room. She was found to have fevers of 102.8, chills, and elevated lactate of 2.7. She was hypoxic. She was admitted to CCU and started on oral vancomycin for C. difficile. She did receive 1 dose of IV Flagyl in the emergency room. She was given 2.4 L of IV fluids and then continued on LR at 150 ML's per hour. This morning, the patient states she has had an incontinent stool. She denies pain anywhere and specifically denies headache, chest pain or abdominal pain. She states she was nauseated yesterday but is not nauseated today. She denies any shortness of breath at this time. She is currently on 3 L of oxygen. She has a history of asthma and chronic cough for about 30 years. She has paroxysmal atrial fibrillation and did go into A. fib at approximately 5 :30 this morning. Heart rate has been ranging from 100-120. Comprehensive review of systems: The patient has chronic low back pain. She is a little forgetful per her family. She has had a chronic cough for 30 years and has been told it is secondary to asthma. She did have problems with lower extremity edema and fullness in her abdomen. She still feels full in her abdomen but the lower extremity edema is better Otherwise, complete review of systems is negative other than the above in history of present illness. Past medical history and surgical history is reviewed and unchanged from above other than she does not have COPD. She does have asthma and chronic cough. She sees Dr. Ford for A. fib and CHF and Dr. Roman for asthma and chronic cough Family history is reviewed and unchanged Social history is reviewed and unchanged other than she is a former smoker but quit before she was 32 Medications and allergies are reviewed Physical exam Heart rate 100-120. Blood pressure 94/67, O2 sat 97% on 3 L, respirations 14 GEN-drowsy but arousable. Mildly forgetful. No acute distress HEENT-clear anicteric, pupils are equal, oropharynx is moist NECK-supple CV-borderline tachycardic rate with an irregular rhythm CHEST-clear to auscultation bilaterally ABD-soft, nontender with positive bowel sounds -no [place] EXT-no edema NEURO-no focal deficits SKIN-warm and dry White count is 27 up from 23. Bands 21%. Hemoglobin 13. Platelets 183. INR 2.81. Basic metabolic profile this morning is normal other than potassium 3.4, chloride 109. BUN has decreased from 29-11. Plasma lactate was 2.7 on recheck was 3.5, and on recheck this morning was 3.3. Urinalysis was essentially normal. Blood cultures were obtained and are pending Impression Severe sepsis with elevated lactate of 3.5, borderline hypotension (patient states blood pressure in the 90s is common for her), hypoxia, tachycardia and infection with C. difficile C. difficile diarrhea Paroxysmal A. fib-currently in A. fib with RVR Congestive heart failure with unknown ejection fraction Borderline hypotension Hypokalemia Asthma Recent sepsis 2 weeks ago with UTI Plan Vancomycin orally for C. difficile. Continue IV fluids for now. Start probiotics. Repeat lactate. Monitor blood pressure closely, hold Lasix. Will determine whether or not to hold diltiazem for borderline hypotension. Pharmacy consult regarding warfarin management Continue nebulizers for asthma Replace potassium orally and check magnesium The patient is critically ill. 50 minutes of critical care time was spent seeing and evaluating the patient this morning in determining care plan. Hospital Course Summary Disclaimer: The visit summary below is not to be considered part of the above Progress Note.
[2017-07-15] MEDS: NS 1,000 ML IV SCH ×2 (00:52→05:09)
[2017-07-15] MEDS ORDERED: VANCOMYCIN 250mg/5ml ORAL LIQ PO SCH (01:00)
[2017-07-15] MEDS: LR 1,000 ML IV SCH ×3 (06:32→20:20)
[2017-07-15] MEDS: LR 500 ML IV SCH (06:32)
[2017-07-15] MEDS: LEVOTHYROXINE 50 MCG TABLET PO SCH (06:32)
[2017-07-15] MEDS: BUDESONIDE INH.SOLN 0.25mg/2ml NEB AEROSOL SCH ×2 (07:05→22:03)
[2017-07-15] MEDS: ARFORMOTEROL NEB 15mcg/2ml AEROSOL SCH ×2 (07:05→22:03)
[2017-07-15] MEDS: OMEPRAZOLE 20 MG CAPSULE PO SCH (07:10)
[2017-07-15] MEDS ORDERED: WARFARIN - PHARMACY CONSULT MC ONE (08:36)
[2017-07-15] MEDS: VANCOMYCIN 250mg/5ml ORAL LIQ PO SCH ×3 (09:28→21:23)
[2017-07-15] MEDS: GABAPENTIN 100 MG CAPSULE PO SCH ×3 (09:30→21:22)
[2017-07-15] MEDS: DiltiaZEM Drip 125 MG in NS 125 ML IV SCH (10:01)
[2017-07-15] MEDS: Venlaflaxine XR 75 MG CAPSULE (24hr) PO SCH (10:02)
--- NOTE | 2017-07-15 10:05 | Pharmacy Consult ---
Pharmacy Consult-Warfarin - Laboratory Information 07/15/17 07/15/17 04:30 04:30 Hgb 13.0 Hct 40.4 INR 2.81 H - Consult Information Warfarin consult noted by Dr Aguirre. Ms Ludwig on warfarin for PAF, target INR is 2-3. Will order warfarin 2mg po today at noon, this is her home dose. Thank you.
--- NOTE | 2017-07-15 10:41 | XRay Report ---
INDICATION: fever, sepsis, cough PROCEDURE: CHEST 2-VIEWS UPRIGHT (PA & LAT) Encounter: Initial COMPARISON: June 30, 2017 FINDINGS: The lungs are stable without new abnormal airspace opacity. There is no pleural effusion or pneumothorax. Left pacemaker. The heart size, mediastinal contours and pulmonary vascularity are stable. IMPRESSION: Stable chest without acute cardiopulmonary disease. .
[2017-07-15] MEDS: SOTALOL 80 MG TABLET PO SCH ×2 (11:08→21:22)
[2017-07-15] MEDS ORDERED: WARFARIN 2 MG TABLET PO SCH (12:00)
[2017-07-15] MEDS: SIMVASTATIN 20 MG TABLET PO SCH (21:22)
[2017-07-16] MEDS: VANCOMYCIN 250mg/5ml ORAL LIQ PO SCH ×4 (03:14→20:26)
[2017-07-16] MEDS: LEVOTHYROXINE 50 MCG TABLET PO SCH ×2 (05:23→07:03)
[2017-07-16] MEDS: OMEPRAZOLE 20 MG CAPSULE PO SCH ×2 (05:24→07:03)
--- NOTE | 2017-07-16 07:30 | Pharmacy Consult ---
Pharmacy Consult-Warfarin - Laboratory Information 07/15/17 07/15/17 07/16/17 04:30 04:30 04:30 Hgb 13.0 11.5 L D Hct 40.4 36.3 INR 2.81 H Albumin 07/16/17 07/16/17 04:30 04:30 Hgb Hct INR 2.47 H Albumin 3.0 L - Consult Information 87 y.o. Female with history of a. fib and chronic anticoagulation with Warfarin. Home warfarin dose= 2 mg po daily. goal INR range = 2.0 to 3.0 date INR dose 07/15 2.81 2 mg 07/16 2.47 plan: 2 mg INR is in therapeutic range. Will give Warfarin 2 mg po x 1 dose today. No significant drug-drug interactions noted. Pharmacy will monitor and adjust as needed. Thank you, Lauren Thornton [facility]
[2017-07-16] MEDS: LACTOBACILLUS (15B cfu) CAPSULE PO SCH ×3 (08:33→17:49)
--- NOTE | 2017-07-16 08:45 | XRay Report ---
EXAM: XR chest 1V LOCATION OF DICTATION: [facility] HISTORY: hypoxia COMPARISON: July 14, 2017 FINDINGS: The heart size is upper limits normal. Left-sided dual-lead pacemaker in place. Chronic senescent interstitial changes without consolidating opacities or pleural effusions. Limited depth of inspiration with some crowding of the interstitial lung markings. The osseous structures are within normal limits for the patient's age. IMPRESSION: 1. Mild chronic interstitial changes without evidence for developing consolidation. 2. Heart size is normal. .
[2017-07-16] MEDS: Venlaflaxine XR 75 MG CAPSULE (24hr) PO SCH (09:44)
[2017-07-16] MEDS: GABAPENTIN 100 MG CAPSULE PO SCH ×3 (09:44→20:26)
[2017-07-16] MEDS: SOTALOL 80 MG TABLET PO SCH ×2 (09:44→20:27)
[2017-07-16] MEDS: ARFORMOTEROL NEB 15mcg/2ml AEROSOL SCH ×2 (10:00→20:49)
[2017-07-16] MEDS: BUDESONIDE INH.SOLN 0.25mg/2ml NEB AEROSOL SCH ×2 (10:00→20:49)
[2017-07-16] MEDS: LR 1,000 ML IV SCH (10:28)
[2017-07-16] MEDS: DiltiaZEM Drip 125 MG in NS 125 ML IV SCH (10:28)
[2017-07-16] MEDS ORDERED: WARFARIN 2 MG TABLET PO SCH (12:00)
[2017-07-16] MEDS: ACETAMINOPHEN 325 MG TABLET PO PRN ×2 (13:55→20:27)
--- NOTE | 2017-07-16 14:02 | Progress Note ---
- Date 07/16/17 Subjective: The patient was seen this afternoon in her room accompanied by her daughter. Patient states she is feeling a little bit better every day. She still has some occasional abdominal discomfort. She is continuing to have frequent diarrhea. She is hungry and has tolerated clear liquids. She is urinating frequently. She was needing 3 L of oxygen, but we have been able to titrate to room air and oxygen saturations are in the 90s. She denies feeling short of breath. She is worried about developing fluid overload which has happened during hospitalizations in the past. Objective Vital signs: Temperature 98.6 F 07/16/17 12:09 Pulse Rate 96 07/16/17 12:30 Respiratory Rate 25 H 07/16/17 12:30 Blood Pressure 99/57 07/16/17 12:09 Pulse Oximetry 96 07/16/17 12:30 Height/Weight/BMI: Height 1.55 m Weight 83.3 kg Body Mass Index 32.9 Comments: Weight is 83.3 kg up from 79 kg on admission. Cumulative I&O is 9577/9450. She has had some unmeasured urine as well. Afebrile, heart rate 89-105, blood pressure 99/57-the patient states her blood pressure is usually in the 90s systolic at home, O2 sat is 95% on 3 L and 95% on room air GEN-alert, oriented, occasionally forgetful, no acute distress HEENT-sclera anicteric, oropharynx is moist NECK-supple CV-irregularly irregular CHEST-clear to auscultation bilaterally ABD-soft, mildly tender, no rebound or guarding, positive bowel sounds -no [place] EXT-no peripheral edema NEURO-no focal deficits, mild chronic memory difficulties SKIN-warm and dry and without rashes Results - Labs CBC & Chem 7: 07/16/17 04:30 07/16/17 04:30 Labs: Phosphorus is low at 1.7. Magnesium is normal at 1.9. INR is 2.47. - Impressions Chest x-ray reveals mild chronic interstitial changes without evidence for developing consolidation. Assessment and Plan (1) Severe sepsis Current visit: Yes Status: Acute (2) C. difficile colitis Current visit: Yes Status: Acute (3) CHF (congestive heart failure) Current visit: No Status: Acute (4) PAF (paroxysmal atrial fibrillation) Current visit: No Status: Chronic (5) GERD (gastroesophageal reflux disease) Current visit: No Status: Chronic (6) COPD (chronic obstructive pulmonary disease) Current visit: No Status: Chronic Assessment and Plan: Impression Severe sepsis with elevated lactate of 3.5, borderline hypotension (patient states blood pressure in the 90s is common for her), hypoxia, tachycardia and infection with C. difficile C. difficile diarrhea Abdominal pain Paroxysmal A. fib-currently in A. fib with RVR Chronic anticoagulation with Coumadin Chronic borderline low blood pressure with systolic in the 90s Acute hypoxic respiratory failure-resolved Congestive heart failure with unknown ejection fraction Borderline hypotension Hypokalemia Asthma Recent sepsis 2 weeks ago with UTI Essential hypertension Hypophosphatemia Plan Overall, the patient is showing signs of improvement. Energy level is improving. White count is trending down. Bands are trending down. Fever has resolved. We'll continue oral vancomycin for treatment of C. difficile. Blood cultures are negative to date. The patient appears to be euvolemic. We'll DC IV fluids. May need to restart her usual Lasix. Replace potassium and phosphorus orally and recheck tomorrow. Regarding A. fib with RVR, improved with IV Cardizem. Tolerating sotalol, but still in A. fib. Will start low-dose oral short acting Cardizem and monitor blood pressure and pulse closely. Advance diet if okay with speech therapy. Increase activity. Consult PT OT. IRU screen. [place] as needed for abdominal pain. Continue nebulizers for asthma/chronic cough. Continue warfarin per pharmacy. INR is therapeutic. Discussed findings and recommendations with the patient and her daughter. DVT Prophylaxis: SCD's GI Prophylaxis: Omeprazole Resuscitation Status: Do Not Resuscitate - Physician Narrative Narrative: Date: 07/16/17 Time: 1356 Hospital Course Summary Disclaimer: The visit summary below is not to be considered part of the above Progress Note.
[2017-07-16] MEDS ORDERED: ALPRAZolam 1 MG TABLET PO PRN (14:14)
[2017-07-16] MEDS: PHOSPHORUS 250 MG TABLET PO SCH ×2 (17:49→20:26)
[2017-07-16] MEDS: SIMVASTATIN 20 MG TABLET PO SCH (20:26)
[2017-07-16] MEDS: HYDROCODONE/APAP 5mg/325mg TABLET PO PRN (22:38)
[2017-07-17] MEDS: VANCOMYCIN 250mg/5ml ORAL LIQ PO SCH ×4 (02:25→21:34)
[2017-07-17] MEDS: HYDROCODONE/APAP 5mg/325mg TABLET PO PRN ×2 (02:44→17:12)
[2017-07-17] MEDS: LEVOTHYROXINE 50 MCG TABLET PO SCH (06:38)
[2017-07-17] MEDS: OMEPRAZOLE 20 MG CAPSULE PO SCH (06:38)
[2017-07-17] MEDS: BUDESONIDE INH.SOLN 0.25mg/2ml NEB AEROSOL SCH ×2 (07:45→21:21)
[2017-07-17] MEDS: ARFORMOTEROL NEB 15mcg/2ml AEROSOL SCH ×2 (07:45→21:22)
[2017-07-17] MEDS: GABAPENTIN 100 MG CAPSULE PO SCH ×3 (09:03→21:38)
[2017-07-17] MEDS: LACTOBACILLUS (15B cfu) CAPSULE PO SCH ×3 (09:03→17:12)
[2017-07-17] MEDS: SOTALOL 80 MG TABLET PO SCH ×2 (09:03→21:38)
[2017-07-17] MEDS: PHOSPHORUS 250 MG TABLET PO SCH ×4 (09:03→21:35)
[2017-07-17] MEDS: Venlaflaxine XR 75 MG CAPSULE (24hr) PO SCH (09:03)
[2017-07-17] MEDS: ALPRAZolam 0.5 MG TABLET PO PRN ×2 (09:54→21:38)
[2017-07-17] MEDS ORDERED: ALBUTEROL 2.5mg/3ml (0.083%) NEB AEROSOL PRN (10:53)
[2017-07-17] MEDS ORDERED: FUROSEMIDE 40 MG/4 ML INJECTION IVP ONE (11:00)
--- NOTE | 2017-07-17 11:02 | Progress Note ---
- Date 07/17/17 Subjective: The patient was seen this morning in her room accompanied by her daughter. She is still having frequent diarrheal stools. She feels like she is edematous. She was requiring oxygen overnight, but did not require it during the day yesterday or during the day today. She does snore at night and would likely benefit from overnight oximetry on room air. Depending on results, she might benefit from an outpatient sleep study. She is eating and drinking okay. She denies any pain. She continues in A. fib and heart rate has been 90s to 130s. Heart rate has improved after restarting her usual oral Cardizem. Objective Vital signs: Temperature 97.5 F 07/17/17 04:00 Pulse Rate 114 H 07/17/17 10:45 Respiratory Rate 23 07/17/17 10:45 Blood Pressure 131/81 07/17/17 10:30 Pulse Oximetry 94 07/17/17 10:45 Height/Weight/BMI: Height 1.55 m Weight 83.3 kg Body Mass Index 32.9 Comments: I&O 2347/4790. Weight was up 5 kg yesterday. Heart rate is 90s to 130s. Blood pressure 130/81. O2 sat 95% on room air. This morning she was needing O2 overnight. GEN-alert, oriented, no acute distress HEENT-sclera are anicteric, oropharynx is moist NECK-supple CV-irregularly irregular with borderline tachycardia CHEST-crackles in the bases bilaterally ABD-soft, nontender with positive bowel sounds -no [place] EXT-trace edema of all 4 extremities NEURO-no focal deficits SKIN-warm and dry Results - Labs CBC & Chem 7: 07/17/17 04:29 07/17/17 04:29 Labs: INR 3.16, phosphorus 2.5 up from 1.7. Calcium 9.1. Assessment and Plan (1) Severe sepsis Current visit: Yes Status: Acute (2) C. difficile colitis Current visit: Yes Status: Acute (3) CHF (congestive heart failure) Current visit: No Status: Acute (4) PAF (paroxysmal atrial fibrillation) Current visit: No Status: Chronic (5) GERD (gastroesophageal reflux disease) Current visit: No Status: Chronic (6) COPD (chronic obstructive pulmonary disease) Current visit: No Status: Chronic Assessment and Plan: Impression Severe sepsis with elevated lactate of 3.5, borderline hypotension (patient states blood pressure in the 90s is common for her), hypoxia, tachycardia and infection with C. difficile C. difficile diarrhea Abdominal pain Paroxysmal A. fib-currently in A. fib with RVR Chronic anticoagulation with Coumadin Chronic borderline low blood pressure with systolic in the 90s Acute hypoxic respiratory failure-resolved Nocturnal hypoxemia-? chronic versus secondary to fluid overload Fluid overload Congestive heart failure with unknown ejection fraction Hypokalemia Asthma Recent sepsis 2 weeks ago with UTI Hypophosphatemia-resolved, DC phosphate replacement this evening. Plan Overall, the patient continues to improve. She does continue to have frequent diarrheal stools. White count has normalized. She is afebrile. Oral Cardizem was restarted today. IV Cardizem was discontinued. She has continued on her usual sotalol and is on warfarin chronically. We'll give IV Lasix 1 and then resume her usual oral Lasix for fluid overload. We'll check an overnight oximetry on room air on the evening of 07/18/2017 DC phosphorus replacement after tonight's dose. Replace potassium orally. PT evaluated the patient and recommends home with home health. OT recommends home with assist. Transfer to the floor today. Discussed with the patient, her daughter and the patient's nurse. DVT Prophylaxis: Coumadin GI Prophylaxis: Rantidine Resuscitation Status: Do Not Resuscitate - Physician Narrative Narrative: Date: 07/17/17 Time: 1057 Hospital Course Summary Disclaimer: The visit summary below is not to be considered part of the above Progress Note.
--- NOTE | 2017-07-17 11:27 | Pharmacy Consult ---
Pharmacy Consult-Warfarin - Laboratory Information 07/16/17 07/16/17 07/17/17 04:30 04:30 04:29 Hgb Hct INR 2.47 H 3.16 H Albumin 3.0 L - Consult Information 87 y.o. Female with history of a. fib and chronic anticoagulation with Warfarin. Home warfarin dose= 2 mg po daily. goal INR range = 2.0 to 3.0 date INR dose 07/15 2.81 2 mg 07/16 2.47 2 mg 07/17 3.12 NO WARFARIN TODAY INR is in therapeutic range. Will give NO Warfarin today. No significant drug- drug interactions noted. The Pharmacy will monitor and adjust the warfarin s needed. Thanks, [facility]
[2017-07-17] MEDS: FUROSEMIDE 40 MG TABLET PO SCH (17:11)
[2017-07-17] MEDS: SIMVASTATIN 20 MG TABLET PO SCH (21:35)
[2017-07-17] MEDS: RANITIDINE 150 MG TABLET PO SCH (21:38)
[2017-07-18] MEDS: VANCOMYCIN 250mg/5ml ORAL LIQ PO SCH ×4 (03:04→22:20)
[2017-07-18] MEDS: ACETAMINOPHEN 325 MG TABLET PO PRN (03:54)
[2017-07-18] MEDS: OMEPRAZOLE 20 MG CAPSULE PO SCH (06:52)
[2017-07-18] MEDS: LEVOTHYROXINE 50 MCG TABLET PO SCH (06:52)
[2017-07-18] MEDS: BUDESONIDE INH.SOLN 0.25mg/2ml NEB AEROSOL SCH ×2 (07:03→19:42)
[2017-07-18] MEDS: ARFORMOTEROL NEB 15mcg/2ml AEROSOL SCH ×2 (07:03→19:42)
--- NOTE | 2017-07-18 08:28 | Pharmacy Consult ---
Pharmacy Consult-Warfarin - Laboratory Information 07/15/17 07/15/17 07/16/17 04:30 04:30 04:30 Hgb 13.0 11.5 L D Hct 40.4 36.3 INR 2.81 H Albumin 07/16/17 07/16/17 07/17/17 04:30 04:30 04:29 Hgb Hct INR 2.47 H 3.16 H Albumin 3.0 L 07/17/17 07/17/17 07/18/17 04:29 04:29 04:32 Hgb 11.6 L Hct 37.1 INR 2.79 H Albumin 3.0 L 07/18/17 07/18/17 04:32 04:32 Hgb 13.0 D Hct 41.0 INR Albumin 3.6 - Consult Information COUMADIN CONSULT (Recurring): 87 y.o. Female with history of a. fib and chronic anticoagulation with Warfarin. Home warfarin dose= 2 mg po daily. goal INR range = 2.0 to 3.0 date INR dose 07/15 2.81 2 mg 07/16 2.47 2 mg 07/17 3.12 NO WARFARIN 07/18 2.79 Will give 1 mg Warfarin today. The INR is in the Therapeutic Range between 2-3. Pharmacy will continue to monitor and adjust the warfarin dose. Thank you. Ladi Holloway, PharmD
[2017-07-18] MEDS: FUROSEMIDE 40 MG TABLET PO SCH ×2 (08:41→15:17)
[2017-07-18] MEDS: Venlaflaxine XR 75 MG CAPSULE (24hr) PO SCH (08:41)
[2017-07-18] MEDS: LACTOBACILLUS (15B cfu) CAPSULE PO SCH ×3 (08:41→17:55)
[2017-07-18] MEDS: SOTALOL 80 MG TABLET PO SCH ×2 (08:42→22:21)
[2017-07-18] MEDS: GABAPENTIN 100 MG CAPSULE PO SCH ×3 (08:42→22:21)
[2017-07-18] MEDS: FLUTICASONE NASAL SPRAY 50mcg EA NOSTRIL SCH (08:57)
[2017-07-18] MEDS ORDERED: WARFARIN 1 MG TABLET PO SCH (12:00)
[2017-07-18] MEDS ORDERED: DiltiaZEM SR 60 MG CAPSULE (12 HR) PO SCH (13:30)
--- NOTE | 2017-07-18 13:32 | Progress Note ---
- Date 07/18/17 Subjective: Fatou is seen today in follow up. She is on the phone, so our conversation is limited. She reports feeling better overall. Eating well. Still quite a few liquid stools charted. Objective Vital signs: Temperature 95.8 F L 07/18/17 12:51 Pulse Rate 102 H 07/18/17 12:51 Respiratory Rate 20 07/18/17 12:51 Blood Pressure 115/77 07/18/17 12:51 Pulse Oximetry 95 07/18/17 12:51 Rhythm: Atrial Fibrillation with Normal Ventricular Rate (Mildly elevated HR ongoing over 100. ) Height/Weight/BMI: Height 1.55 m Weight 83 kg Body Mass Index 32.9 - Constitutional Present: no acute distress, average body habitus, cooperative - Routine HEENT Exam Head: Present: normocephalic, atraumatic Eye: Present: EOMI, PERRL ENT: Present: mucous membranes moist - Routine Respiratory Exam Present: CTA bilaterally. Absent: rales, respiratory distress, wheezes, crackles, distant breath sounds - Routine Cardiovascular Exam Present: S1, S2, no murmur, irregular rhythm, irregularly irregular - Routine Abdominal Exam Present: soft, non tender, distended - Routine Extremities Exam Present: edema (Trace LE edema) - Routine Skin Exam Present: intact, dry, warm - Routine Neurological Exam Present: alert, moving all extremities Results - Labs CBC & Chem 7: 07/18/17 04:32 07/18/17 04:32 Assessment and Plan (1) COPD (chronic obstructive pulmonary disease) Current visit: No Status: Chronic (2) GERD (gastroesophageal reflux disease) Current visit: No Status: Chronic (3) PAF (paroxysmal atrial fibrillation) Current visit: No Status: Chronic (4) Severe sepsis Current visit: Yes Status: Acute (5) CHF (congestive heart failure) Current visit: No Status: Acute (6) C. difficile colitis Current visit: Yes Status: Acute Assessment and Plan: Impression Severe sepsis with elevated lactate of 3.5, borderline hypotension (patient states blood pressure in the 90s is common for her), hypoxia, tachycardia and infection with C. difficile C. difficile diarrhea Abdominal pain Paroxysmal A. fib-currently in A. fib with RVR Chronic anticoagulation with Coumadin Chronic borderline low blood pressure with systolic in the 90s Acute hypoxic respiratory failure-resolved Nocturnal hypoxemia-? chronic versus secondary to fluid overload Fluid overload Congestive heart failure with unknown ejection fraction Hypokalemia Asthma Recent sepsis 2 weeks ago with UTI Hypophosphatemia-resolved, DC phosphate replacement this evening. Plan 07/18/17 Continues to slowly improve. Her HR remains elevated, over 100, despite oral cardizem restart. Will give one time dose of 60mg SR cardizem, and increase daily dose to 180mg. Decrease Lasix to 40mg BID instead of 60mg, continue KCL replacement. (pt. looks mildly dry on labs, and need to increase Cardizem for HR control) Additional dose of KCL given today. Weight is trending down. She is feeling better, but loose stools continue. Continue probiotics. Anticoagulation with Warfarin- pharmacy protocol in place. Continue supportive care. Home soon when stools improve. PT/OT following. 07/18/2017-I examined the patient independently. I reviewed this chart, the patient history, and the SUPERVISOR SANDBLASTER's/PA's documented findings as above. We discussed and formulated the assessment and plan as above with the additions below.-Dr. Aguirre The patient was seen this afternoon in her room. She states she starting to feel better. She feels less edematous today. She states she had some diarrheal stools this morning, but no stools all afternoon, which is an improvement. She is eating and drinking well. She has a chronic cough. She denies shortness of breath. She's on room air today. On exam she is alert and in no acute distress. Chest is clear to auscultation, but deep breathing causes a cough. Cardiovascular reveals an irregularly irregular rhythm with a borderline tachycardic rate. Abdomen is soft and nontender. Extremities reveal trace edema, left greater than right which is chronic. Skin is warm and dry and without rashes. Lab today reveal sodium 147, potassium 3.2. White count is down to 7.4. Hemoglobin is 13. INR is 2.79. Calcium and phosphorus are normal. Albumin is 3.6. Impression and plan Overall, the patient continues to show improvement regarding her C. difficile. White count has normalized and stool frequency has decreased. She is tolerating oral vancomycin without difficulties. Agree with increased Cardizem. Recheck lab tomorrow. Overnight oximetry on room air tonight to determine if she needs home O2. PT and OT did see the patient and recommended home with home health. The patient and her are interested in home health. Possible dismissal tomorrow if she continues to improve. DVT Prophylaxis: SCD's GI Prophylaxis: Omeprazole, Rantidine Resuscitation Status: Do Not Resuscitate - Physician Narrative Narrative: Date: 07/18/17 Time: 1329 Hospital Course Summary Disclaimer: The visit summary below is not to be considered part of the above Progress Note. Hospital Course: Plan 07/18/17 Continues to slowly improve. Her HR remains elevated, over 100, despite oral cardizem restart. Will give one time dose of 60mg SR cardizem, and increase daily dose to 180mg. Decrease Lasix to 40mg BID instead of 60mg, continue KCL replacement. (pt. looks mildly dry on labs, and need to increase Cardizem for HR control) Additional dose of KCL given today. Weight is trending down. She is feeling better, but loose stools continue. Continue probiotics. Anticoagulation with Warfarin- pharmacy protocol in place. Continue supportive care. Home soon when stools improve. PT/OT following. Addendum entered and electronically signed by Misty Cheema APRN 07/18/17 13:42 : Change Zocor to Atorvastatin due to concern with CCB interaction. KB
[2017-07-18] MEDS ORDERED: FALL RISK - PHARMACY CONSULT MC ONE (16:53)
[2017-07-18] MEDS ORDERED: CEFTRIAXONE 1 G INJECTION IM SCH (17:30)
[2017-07-18] MEDS ORDERED: LIDOCAINE 1% (10mg/ml) 2mL INJ PF SDV ID ONE (17:30)
[2017-07-18] MEDS ORDERED: ATORVASTATIN 10 MG TABLET PO SCH (21:00)
[2017-07-18] MEDS: RANITIDINE 150 MG TABLET PO SCH (22:21)
[2017-07-18] MEDS: ALPRAZolam 0.5 MG TABLET PO PRN (22:41)
[2017-07-19] MEDS: VANCOMYCIN 250mg/5ml ORAL LIQ PO SCH ×3 (04:12→14:43)
[2017-07-19] MEDS: LEVOTHYROXINE 50 MCG TABLET PO SCH (06:58)
[2017-07-19] MEDS: OMEPRAZOLE 20 MG CAPSULE PO SCH (06:58)
[2017-07-19] MEDS: LR 500 ML IV SCH (08:02)
--- NOTE | 2017-07-19 08:08 | Pharmacy Consult ---
Pharmacy Consult-Warfarin - Laboratory Information 07/18/17 07/18/17 07/19/17 04:32 04:32 04:37 Hgb 13.0 D Hct 41.0 INR 2.27 H Albumin 3.6 - Consult Information Day 5 87 y.o. Female with history of a. fib and chronic anticoagulation with Warfarin. Home warfarin dose= 2 mg po daily. goal INR range = 2.0 to 3.0 date INR dose 07/15 2.81 2 mg 07/16 2.47 2 mg 07/17 3.12 NO WARFARIN TODAY 07/18 2.79 1 mg 07/19 2.27 1.5 mg INR is in therapeutic range. I will give Warfarin 1.5 mg p o today. No significant drug-drug interactions noted. The Pharmacy will monitor and adjust the warfarin s needed. Thanks, [facility]
[2017-07-19] MEDS: BUDESONIDE INH.SOLN 0.25mg/2ml NEB AEROSOL SCH (08:24)
[2017-07-19] MEDS: ARFORMOTEROL NEB 15mcg/2ml AEROSOL SCH (08:25)
[2017-07-19] MEDS: Venlaflaxine XR 75 MG CAPSULE (24hr) PO SCH (08:46)
[2017-07-19] MEDS: LACTOBACILLUS (15B cfu) CAPSULE PO SCH ×2 (08:46→11:35)
[2017-07-19] MEDS: FLUTICASONE NASAL SPRAY 50mcg EA NOSTRIL SCH (08:46)
[2017-07-19] MEDS: GABAPENTIN 100 MG CAPSULE PO SCH ×2 (08:46→14:44)
[2017-07-19] MEDS: SOTALOL 80 MG TABLET PO SCH (08:46)
[2017-07-19] MEDS: FUROSEMIDE 40 MG TABLET PO SCH (08:46)
--- NOTE | 2017-07-19 09:23 | XRay Report ---
Indication: hypoxia, ?pulm edema PROCEDURE: XR chest 1V: Encounter: Initial Comparison: July 16, 2017 Findings: Developing left lower lobe airspace opacity. Right lung is stable and grossly clear. No pneumothorax or definite effusion. Heart size and mediastinal contours are stable. Left pacemaker. Pulmonary vascularity is unchanged. Impression: Left lower lobe airspace disease could represent atelectasis or developing pneumonia. .
--- NOTE | 2017-07-19 09:35 | Progress Note ---
- Date 07/19/17 Subjective: Fatou was in the middle of a breathing treatment. She was on 1-2 L of oxygen all night, but her sats have been mid 90s this morning while on O2. She denies feeling any more SOA than usual. She has a chronic cough and chronically needs to clear her throat and these symptoms haven't changed either. She denies dizziness/lightheadedness. She denies chest pain or palpations or feeling like her heart is beating too fast. She states that her weight has been going up and her hands feel swollen. She denies abdominal pain, nausea, or bloating. She hasn 't yet had a BM yet today. Objective Vital signs: Temperature 96.4 F L 07/19/17 07:29 Pulse Rate 105 H 07/19/17 08:46 Respiratory Rate 18 07/19/17 08:25 Blood Pressure 117/86 07/19/17 07:29 Pulse Oximetry 92 07/19/17 08:45 Rhythm: Atrial Fibrillation with Normal Ventricular Rate (Mildly elevated HR ongoing over 100. ) Height/Weight/BMI: Height 1.55 m Weight 81.6 kg Body Mass Index 32.9 - Constitutional Present: no acute distress, well nourished, well developed - Routine HEENT Exam Head: Present: normocephalic Eye: Present: PERRL. Absent: conjunctival icterus, scleral injection - Routine Respiratory Exam Present: rales (bilateral bases) - Routine Cardiovascular Exam Present: irregularly irregular - Routine Abdominal Exam Present: soft, normoactive bowel sounds, non distended, non tender - Routine Extremities Exam Present: edema (1+ b/l, L>R which is chronic per pt.) - Routine Skin Exam Present: intact, dry, warm - Routine Neurological Exam Present: alert, oriented X3, CN II-XII intact, moving all extremities, normal speech - Routine Psychiatric Exam Present: normal affect, normal thought process, cooperative Results - Labs CBC & Chem 7: 07/19/17 04:37 07/19/17 04:37 Assessment and Plan (1) COPD (chronic obstructive pulmonary disease) Current visit: No Status: Chronic (2) GERD (gastroesophageal reflux disease) Current visit: No Status: Chronic (3) PAF (paroxysmal atrial fibrillation) Current visit: No Status: Chronic (4) Severe sepsis Current visit: Yes Status: Acute (5) CHF (congestive heart failure) Current visit: No Status: Acute (6) C. difficile colitis Current visit: Yes Status: Acute Assessment and Plan: Impression Severe sepsis with elevated lactate of 3.5, borderline hypotension (patient states blood pressure in the 90s is common for her), hypoxia, tachycardia and infection with C. difficile C. difficile diarrhea Abdominal pain - resolved Paroxysmal A. fib-currently in A. fib with mild RVR Chronic anticoagulation with Coumadin Chronic borderline low blood pressure with systolic in the 90s Acute hypoxic respiratory failure-resolved Nocturnal hypoxemia-? chronic versus secondary to fluid overload Fluid overload Congestive heart failure with unknown ejection fraction Hypokalemia/hypomagnesemia Asthma Recent sepsis 2 weeks ago with UTI Hypophosphatemia-resolved, DC phosphate replacement this evening. Plan 07/19/17 HR mildly tachycardic; a-fib; cardizem dose increased. INR therapeutic. Resume home diuretic dose, Lasix 60 mg BID. Increase KDur dose (pt reported she takes an add'l 20 mEq in evening at home) RT trying to wean off oxygen this am. Hypokalemia/hypomag - replacement ordered. CXR personally reviewed - LLL mild opacity. Denies new sx of pneumonia. Continue oral vanco for C. difficile; stools are slowing. DVT Prophylaxis: Coumadin GI Prophylaxis: Omeprazole Resuscitation Status: Do Not Resuscitate - Physician Narrative Physician: Lin Aguirre MD Narrative: Date: 07/19/17 Time: 4:20 PM I examined the patient independently. I reviewed this chart, the patient history , and the TECHNICAL PHOTOGRAPHER's/PA's documented findings as above. We discussed and formulated the assessment and plan as above with the additions below.-Dr. Aguirre Patient was seen earlier today in her room. She was feeling quite well and anxious to go home. She is eating and drinking well. She did an overnight oximetry on room air last night and does require 2 L of oxygen per nasal cannula. She is not needing oxygen during the daytime. Diarrheal stools have markedly decreased. On exam today she is alert and oriented and in no acute distress. Chest is clear to auscultation. Cardiovascular reveals an irregularly irregular rhythm with a controlled rate. Abdomen is soft and nontender. Extremities reveal trace edema. Overall, the patient is doing quite well and recovering from her C. difficile colitis and severe sepsis. She appears stable for dismissal to home today. Heart rate has improved with increase in Cardizem. I did discuss her recent A. fib with RVR with Dr. Ford, her logistics technician. He recommended that she stay on the increased dose of Cardizem CD which is 180 mg daily. He recommends that she stay on her current dose of sotalol. The patient was apparently on amiodarone at home but it was not listed as a home medication. Dr. Ford recommended that she remain off of amiodarone for now. He would like to follow- up with her in 3 weeks. The patient is ready for dismissal today and will follow-up with Millie Branham , her SOAKER next week. I will call and notify her of hospital findings and discharge plans. The patient will need lab work then including a CBC, basic metabolic profile, magnesium and INR-home health will draw on Sunday and fax to Dr. Branham The patient will go home with home O2 at 2 L per nasal cannula. See dictated discharge summary from today's date. Hospital Course Summary Disclaimer: The visit summary below is not to be considered part of the above Progress Note. Hospital Course: Plan 07/18/17 Continues to slowly improve. Her HR remains elevated, over 100, despite oral cardizem restart. Will give one time dose of 60mg SR cardizem, and increase daily dose to 180mg. Decrease Lasix to 40mg BID instead of 60mg, continue KCL replacement. (pt. looks mildly dry on labs, and need to increase Cardizem for HR control) Additional dose of KCL given today. Weight is trending down. She is feeling better, but loose stools continue. Continue probiotics. Anticoagulation with Warfarin- pharmacy protocol in place. Continue supportive care. Home soon when stools improve. PT/OT following. PT and OT recommended home with home health. 07/19/17 HR mildly tachycardic; a-fib; cardizem dose increased. INR therapeutic. Resume home diuretic dose, Lasix 60 mg BID. Increase KDur dose (pt reported she takes an add'l 20 mEq in evening at home) RT trying to wean off oxygen this am. Hypokalemia/hypomag - replacement ordered. CXR personally reviewed - LLL mild opacity. Denies new sx of pneumonia. Continue oral vanco for C. difficile; stools are slowing.
[2017-07-19] MEDS ORDERED: FUROSEMIDE 40 MG TABLET PO SCH (09:41)
[2017-07-19] MEDS: NS FLUSH BAG 500ml IV PRN (10:13)
[2017-07-19] MEDS: MAGNESIUM SULFATE 1gm PREMIX 1 GM/100 ML BAG IV SCH ×2 (10:13→10:56)
[2017-07-19] MEDS ORDERED: FUROSEMIDE 20 MG TABLET PO ONE (11:30)
[2017-07-19] MEDS ORDERED: WARFARIN 3 MG TABLET PO SCH (12:00)
[2017-07-19 12:34] VITALS: RESP 16
--- NOTE | 2017-07-19 14:45 | Discharge Summary ---
Discharge Information Date of admission: 07/14/17 19:24 Anticipated date of discharge: 07/19/17 Attending Physician: Lin Aguirre MD Primary care physician: Millie Branham APRN Consults: 07/16/17 IRU Screening [Inpatient Rehab Screening] [CONS] Routine - Discharge Diagnosis (1) Severe sepsis Status: Acute (2) C. difficile colitis Status: Acute Severe sepsis with elevated lactate of 3.5 C. difficile diarrhea Abdominal pain - resolved A. fib- RVR has resolved with increase in dose of cardizem Chronic anticoagulation with Coumadin Chronic borderline low blood pressure with systolic in the 90s-resolved Acute hypoxic respiratory failure-resolved Nocturnal hypoxemia-needs home O2 at HS 2L Fluid overload-improved Chronic Congestive heart failure with unknown ejection fraction Hypokalemia/hypomagnesemia-replaced Asthma-stable Recent sepsis 2 weeks ago with UTI Hypophosphatemia-resolved - Procedures Procedures: Overnight oximetry on room air, the patient was hypoxic and requiring 2 L per nasal cannula - Laboratory Labs: 07/19/17 04:37 07/19/17 04:37 Laboratory Tests 07/14/17 07/14/17 07/14/17 18:15 18:15 21:57 WBC 23.1 H Hgb 13.7 MCV 100.7 H Plt Count 205 Neutrophils % (Manual) 88.0 H Band Neutrophils % 3.0 INR Plasma Lactate 2.7 H 3.5 H 07/15/17 07/15/17 07/15/17 04:30 04:30 11:16 WBC Hgb MCV Plt Count Neutrophils % (Manual) Band Neutrophils % INR 2.81 H Plasma Lactate 3.3 H 1.5 07/16/17 07/17/17 07/18/17 04:30 04:29 04:32 WBC Hgb MCV Plt Count Neutrophils % (Manual) Band Neutrophils % INR 2.47 H 3.16 H 2.79 H Plasma Lactate 07/19/17 04:37 WBC Hgb MCV Plt Count Neutrophils % (Manual) Band Neutrophils % INR 2.27 H Plasma Lactate - Radiology Radiology: = = = = = = = = = = = = = = = = = = = = = = = = = = = = = = = = = = = = = = = = = = = = = = = = = = = = = = = = = = = Date of Exam: 07/14/17 PROCEDURE: CHEST 2-VIEWS UPRIGHT (PA & LAT) FINDINGS: The lungs are stable without new abnormal airspace opacity. There is no pleural effusion or pneumothorax. Left pacemaker. The heart size, mediastinal contours and pulmonary vascularity are stable. IMPRESSION: Stable chest without acute cardiopulmonary disease. = = = = = = = = = = = = = = = = = = = = = = = = = = = = = = = = = = = = = = = = = = = = = = = = = = = = = = = = = = = Date of Exam: 07/16/17 EXAM: XR chest 1V FINDINGS: The heart size is upper limits normal. Left-sided dual-lead pacemaker in place. Chronic senescent interstitial changes without consolidating opacities or pleural effusions. Limited depth of inspiration with some crowding of the interstitial lung markings. The osseous structures are within normal limits for the patient's age. IMPRESSION: 1. Mild chronic interstitial changes without evidence for developing consolidation. 2. Heart size is normal. = = = = = = = = = = = = = = = = = = = = = = = = = = = = = = = = = = = = = = = = = = = = = = = = = = = = = = = = = = = Date of Exam: 07/19/17 PROCEDURE: XR chest 1V: Findings: Developing left lower lobe airspace opacity. Right lung is stable and grossly clear. No pneumothorax or definite effusion. Heart size and mediastinal contours are stable. Left pacemaker. Pulmonary vascularity is unchanged. Impression: Left lower lobe airspace disease could represent atelectasis or developing pneumonia. History of Present Illness HPI: Patient seen via telemedicine with nursing assistance on 07/14/2017 Mrs. Ludwig is an 87yo woman with h/o COPD, CHF with essential HTN and paroxysmal afib, HH/GERD, hypothyroidism, and other just discharged last weed after admission for CAP. She presents from home wiht her at the bedside currently. Has had days of diarrhea with incontinence, no blood, and only mild abdominal pain. Nausea with one bout of emesis. Has a chronic cough with no productivity beyond baseline now. Noted fever over 102 and chills. No prior C diff positivity with lab send yesterday by PCP but not resulted evidently until today. Objective Vital signs: Temperature 96.1 F L 07/19/17 12:00 Pulse Rate 90 07/19/17 12:00 Respiratory Rate 16 07/19/17 12:00 Blood Pressure 114/68 07/19/17 12:00 Pulse Oximetry 97 07/19/17 12:00 Rhythm: Atrial Fibrillation with Normal Ventricular Rate (Mildly elevated HR ongoing over 100. ) Height/Weight/BMI: Height 1.55 m Weight 81.6 kg Body Mass Index 32.9 Comments: see progress note on day of discharge Hospital Course This is a general summary of the patient's hospital course. For more details refer to the complete medical record. Hospital course: Patient was admitted to the CCU with severe sepsis secondary to C. difficile infection on 07/14/17. WBC was 23.1, lactate 2.7, T 102.8. IVF were provided, as she was borderline hypotensive. Oral vancomycin was initiated. Lasix placed on hold initially. Sotalol, diltiazem, warfarin were continued for her history of A -fib. Potassium decreased following IVF and was replaced orally. By 07/16/17, WBC and bands were trending down and fever had resolved; IVF were able to be discontinued. Potassium and phosphorous required replacement during hospitalization. She also required some intermittent IV diuresis during her hospital course. She continued to show improvement and was transferred to the medical floor on 07/18/17. Her heart rate continued to be variable, ranging from 90s-130s, and diltiazem was increased to 180 mg daily on 07/18/17. In addition, Lasix was resumed at lower dose of 40 mg BID rather than 60 mg BID, which she takes at home. PT/OT was consulted and recommended home with home health. An overnight oximetry revealed that she qualified for 2L of nocturnal oxygen. By , she was feeling much better and stool frequency had slowed. She was not requiring oxygen during the day. She continued to have low K and mg on day of discharge, and additional replacement was provided. She was stable for discharge home with home health. Dr. Aguirre spoke with Dr. Ford - he agrees with diltiazem dose increase to 180 mg daily. He does not want her to take amiodarone. He will follow up with her in about 3 weeks (appt scheduled in August) . Oxygen and tubing will be delivered to her house. Rx for vancomycin was called out to her pharmacy to complete a 10-day course. She should continue her usual dose of Lasix and usual dose of KDur (she reports she takes 40 mEq in am and 20 mEq in evening). Recommend f/u with PCP and for BMP to be rechecked in 1 week. Time spent with patient: discharge greater than 30 minutes Resuscitation Status: Do Not Resuscitate Discharge Plan - Discharge Disposition Discharge Date: 07/19/17 Disposition: [facility] *Condition: Stable Reason For Visit (Visit label in EMR): Cdiff and severe sepsis - Discharge Medications *Discharge Medications: New DiltiaZEM CD [Cardizem CD 180 MG] 180 mg PO DAILY #30 cap Vancomycin Oral Liq 125 mg PO Q6HR 5 Days po.syringe Acidoph/L.bulg/Bif.b/S.thermop [Bacid Caplet] 2 cap PO TIDWM 10 Days #60 tab Potassium Chloride [K-DUR 20 mEq Tablet] 20 meq PO WS tab Continue Gabapentin [Neurontin] 100 mg PO TID Ranitidine [Zantac] 150 mg PO HS Furosemide [Lasix 40 mg Tab] 60 mg PO BID Fluticasone Propionate 1 spray EA NOSTRIL DAILY Venlafaxine HCl [Venlafaxine HCl ER] 75 mg PO DAILY Levothyroxine Sodium 50 mcg PO ACB Potassium Chloride 40 meq PO DAILY Simvastatin 20 mg PO HS Omeprazole [Prilosec] 20 mg PO DAILY Arformoterol Neb [Brovana Neb] 15 mcg AEROSOL RTBID vial Carisoprodol [Soma] 350 mg PO BID PRN PRN Reason: Prn Orders Warfarin [Coumadin] 2 mg PO DAILY Albuterol HFA Inhaler [Ventolin Hfa 90 mcg/actuation] 2 puff INH BID ALPRAZolam [Alprazolam] 2 mg PO BID PRN PRN Reason: Prn Orders Sotalol [Betapace] 80 mg PO BID Budesonide Inhalation [Pulmicort Inhalation] 0.25 mg AEROSOL RTBID #60 vial Discontinued dilTIAZem HCl [Dilt-Xr] 120 mg PO HS metroNIDAZOLE [Flagyl] 500 mg PO TID - Discharge Packet/Instructions *Diet: Regular *Activity: C. difficile instructions. Use 2L of oxygen at night *Pain Management/Treatment: Tylenol if needed *Wound Care: N/A Additional Instructions: Start taking diltiazem every morning. Take potassium 40 mEq in the morning and 20 mEq with supper. Stop your amiodarone as recommended by Dr Ford *Expected Signs/Symptoms: Stool frequency and diarrhea should gradually improve. You may feel weakened from your hospitalization. Your weight should gradually decline over the next several days. *Notify Physician if: Fever, abdominal pain, increased stool frequency, vomiting , chest pain, difficulty breathing, weight gain of 2 or more lbs in 1 day or more than 5 lbs in 1 week, stroke like symptoms, racing heart rate, or any new concerns. *During Business Hours Contact: Millie Branham or Dr. Ford *After Business Hours Contact: The on-call provider for Millie Branham or Dr. Ford *Pending Lab/Results: No Pending Lab - Referrals/Follow Up *Referrals/Follow Up: Millie Branham APRN [Primary Care Provider] - 07/26/17 1:30 pm Storm Ford MD [Physician] - 08/16/17 12:15 pm - Patient Handouts Patient Handouts: Sepsis (GEN), Clostridium Difficile Infection (GEN) - Dismissal Complete Discharge Instructions are:: Complete Physician Narrative - Narrative Physician: Lin Aguirre MD Attestation Narrative: Date: 07/19/17 Time: 3:30 PM-I examined the patient independently. I reviewed this chart, the patient history, and the CHILDCARE PROVIDER's/PA's documented findings as above. We discussed and formulated the assessment and plan as above with the additions below.-Dr. Aguirre Patient was seen earlier today in her room. She was feeling quite well and anxious to go home. She is eating and drinking well. She did an overnight oximetry on room air last night and does require 2 L of oxygen per nasal cannula. She is not needing oxygen during the daytime. Diarrheal stools have markedly decreased. On exam today she is alert and oriented and in no acute distress. Chest is clear to auscultation. Cardiovascular reveals an irregularly irregular rhythm with a controlled rate. Abdomen is soft and nontender. Extremities reveal trace edema. Overall, the patient is doing quite well and recovering from her C. difficile colitis and severe sepsis. She appears stable for dismissal to home today. Heart rate has improved with increase in Cardizem. I did discuss her recent A. fib with RVR with Dr. Ford, her straw baler. He recommended that she stay on the increased dose of Cardizem CD which is 180 mg daily. He recommends that she stay on her current dose of sotalol. The patient was apparently on amiodarone at home but it was not listed as a home medication. Dr. Ford recommended that she remain off of amiodarone for now. He would like to follow- up with her in 3 weeks. The patient is ready for dismissal today and will follow-up with Millie Branham , her LEAD BURNER next week. I will call and notify her of hospital findings and discharge plans. The patient will need lab work then including a CBC, basic metabolic profile, magnesium and INR. The patient will go home with home O2 at 2 L per nasal cannula.
[2017-07-19 15:23] VITALS: BP 102/61; PULSE 85; TEMP 97.1; O2SAT 93
== END 2017-07-19 16:53 | disposition home health service (06) | DRG 872 ==
LOC: ED 17:12 → EDHOLD 19:24 → CCU 20:33 → MED 07-17 14:00
PROVIDERS: ADMIT Hospitalist; ATTEND Internal Medicine